=== PATIENT | female | born 1950 | race Caucasian/White ===

== ENCOUNTER 2019-01-28 13:00 | Outpatient (RCR) | payer OTHER, SELFPAY ==
[2019-01-28 12:58] VITALS: BMI 29.9
[2019-01-28 13:05] VITALS: BMI 29.9
== END 2019-04-22 23:59 | disposition home or self-care (01) ==
LOC: ANHDMC 13:00
PROVIDERS: PCP Internal Medicine; Visit Provider Internal Medicine
DX: E11.9 Type 2 diabetes mellitus without complications (principal); Z71.3 Dietary counseling and surveillance; Z71.89 Other specified counseling
CPT/HCPCS: 97803; G0108; G0109

== ENCOUNTER 2019-04-17 16:09 | Outpatient (CLI) | payer OTHER, SELFPAY ==
[2019-04-17 16:51] LABS: Hemoglobin A1C 6.5 % (<5.7)
== END 2019-04-17 16:10 | disposition home or self-care (01) ==
LOC: ANHLAB 16:11
PROVIDERS: PCP Internal Medicine; Visit Provider Internal Medicine
DX: E11.9 Type 2 diabetes mellitus without complications (principal)
CPT/HCPCS: 36415; 83036

== ENCOUNTER 2019-04-24 09:18 | Outpatient (RCR) | payer OTHER, SELFPAY | END 2019-07-23 23:59 | disposition home or self-care (01) | LOC: ANHDMC 09:18 | PROVIDERS: PCP Internal Medicine; Visit Provider Internal Medicine | DX: E11.9 Type 2 diabetes mellitus without complications (principal); Z71.89 Other specified counseling | CPT/HCPCS: G0108 ==

== ENCOUNTER 2019-05-14 07:56 | Outpatient (CLI) | payer OTHER, SELFPAY ==
--- NOTE | 2019-05-14 | EST_ITS ---
Patient Info Name: Gregoria Ortiz Age: 68 years : 1950 Gender: Female Ht: 61 in Wt: 150 lbs BSA: 1.73 m2 Exam Date: 05/14/2019 9:53 AM Exam Location: [facility] Stress Patient Status: Outpatient Admit Date: 05/14/2019 Staff Ordering Physician: Golden Ly MD Attending Provider: Golden Ly MD Exercise Technologist: Kwame Arora, RDCS, RT Nurse: Kary Bruno, ANP, ACNP-BC Exam Type: CA stress franklyn w NM Study Info A nuclear stress test was performed. Summary 1. Please correlate with nuclear medicine images, reported separately. 2. Exercise-induced chest pain. 3. Nondiagnostic upsloping ST segment depressions seen inferolateral leads which do not meet strict criteria for ischemia at peak exercise. Protocol: Manolo Stress ECG Details Stage: REST Duration (min): 1 min : 28 sec Speed (mph): 0.0 Grade (%): 0 HR (bpm): 76 SBP (mmHg): 154 DBP (mmHg): 87 METS: --- Stage: REST Duration (min): 47 min : 22 sec Speed (mph): 0.0 Grade (%): 0 HR (bpm): 87 SBP (mmHg): 154 DBP (mmHg): 87 METS: --- Stage: STAGE 1 Duration (min): 1 min : 0 sec Speed (mph): 1.7 Grade (%): 10 HR (bpm): 105 SBP (mmHg): 154 DBP (mmHg): 87 METS: --- Stage: STAGE 1 Duration (min): 2 min : 0 sec Speed (mph): 1.7 Grade (%): 10 HR (bpm): 123 SBP (mmHg): 154 DBP (mmHg): 87 METS: --- Stage: STAGE 1 Duration (min): 3 min : 0 sec Speed (mph): 1.7 Grade (%): 10 HR (bpm): 131 SBP (mmHg): 187 DBP (mmHg): 99 METS: --- Stage: STAGE 2 Duration (min): 1 min : 0 sec Speed (mph): 2.5 Grade (%): 12 HR (bpm): 146 SBP (mmHg): 187 DBP (mmHg): 99 METS: --- Stage: STAGE 2 Duration (min): 1 min : 41 sec Speed (mph): 2.5 Grade (%): 12 HR (bpm): 156 SBP (mmHg): 187 DBP (mmHg): 99 METS: --- Stage: RECOVERY Duration (min): 0 min : 18 sec Speed (mph): 1.5 Grade (%): 0 HR (bpm): 156 SBP (mmHg): 205 DBP (mmHg): 96 METS: --- Stage: RECOVERY Duration (min): 1 min : 18 sec Speed (mph): 0.0 Grade (%): 0 HR (bpm): 125 SBP (mmHg): 205 DBP (mmHg): 96 METS: --- Stage: RECOVERY Duration (min): 2 min : 18 sec Speed (mph): 0.0 Grade (%): 0 HR (bpm): 112 SBP (mmHg): 205 DBP (mmHg): 96 METS: --- Stage: RECOVERY Duration (min): 3 min : 18 sec Speed (mph): 0.0 Grade (%): 0 HR (bpm): 101 SBP (mmHg): 199 DBP (mmHg): 92 METS: --- Stage: RECOVERY Duration (min): 4 min : 18 sec Speed (mph): 0.0 Grade (%): 0 HR (bpm): 98 SBP (mmHg): 199 DBP (mmHg): 92 METS: --- Stage: RECOVERY Duration (min): 5 min : 18 sec Speed (mph): 0.0 Grade (%): 0 HR (bpm): 97 SBP (mmHg): 174 DBP (mmHg): 91 METS: --- Stage:
--- NOTE | ~2019-05-14 | NM_ITS ---
EXAMINATION: NM stress w perf spect multi DATE: 05/14/2019 12:36 INDICATION: Coronary atherosclerosis. TECHNIQUE: Rest images were obtained following intravenous administration of 9.7 mCi Tc99m tetrofosmi n ([employer]). The patient performed an exercise activity. At peak exercise, 25.7 mCi Tc99m tetrofosmin ([facility]) was administered intravenously, and stress images were obtained. Data was reconstructed in to short axis and horizontal and vertical long axis SPECT images. Gated SPECT images were also obtain ed. COMPARISON: None. FINDINGS: There is no definite reversible or fixed perfusion abnormality to suggest ischemia or infar ction. There is no segmental wall motion abnormality. Left ventricular ejection fraction measures > 70%. IMPRESSION: 1. No definite ischemia or infarct. 2. Normal left ventricular ejection fraction measuring >70%. Reviewed, dictated and finalized at location A. [employer] CONSOLE OPERATOR
== END 2019-05-14 07:57 | disposition home or self-care (01) ==
PROVIDERS: PCP Internal Medicine; Visit Provider Internal Medicine Cardiovascular Disease
DX: I25.118 Atherosclerotic heart disease of native coronary artery with other forms of angina pectoris (principal); R07.9 Chest pain, unspecified
CPT/HCPCS: 78452; 93017; A9502

== ENCOUNTER 2019-07-26 00:35 | Outpatient (CLI) | payer OTHER, SELFPAY ==
[2019-07-26 16:18] LABS: SARS-CoV-2 RNA PCR Negative
== END 2019-07-26 00:36 | disposition home or self-care (01) ==
PROVIDERS: PCP Internal Medicine; Visit Provider Internal Medicine Cardiovascular Disease
DX: Z01.818 Encounter for other preprocedural examination (principal); Z11.59 Encounter for screening for other viral diseases; R07.9 Chest pain, unspecified
CPT/HCPCS: 87635; C9803; U0003

== ENCOUNTER 2019-07-29 00:22 | Day surgery (SDC) | payer OTHER, SELFPAY ==
[2019-07-28 11:50] VITALS: BMI 29.5
[2019-07-29] VITALS (8 sets, daily range): BP systolic 126–169; BP diastolic 65–97; PULSE 70–84; RESP 14–25; TEMP 36.6–36.7; O2SAT 91–97
[2019-07-29 09:19] LABS: Basophils Percent Auto 0.4 % (0.2-1.2); Eosinophils Absolute Auto 0.2 K/mm3 (0-0.3); Eosinophils Percent Auto 2.8 % (0-4.4); Hematocrit 44.3 % (37.0-47.0); Hemoglobin 14.2 g/dL (12.0-15.0); Immature Granulocyte Absolute 0.02 K/mm3 (0.00-0.031); Immature Granulocyte Percent A 0.3 % (0-0.5); Lymphocytes Absolute Auto 2.16 K/mm3 (0.9-3.2); Lymphocytes Percent Auto 28.5 % (18.3-44.2); Mean Corpuscular HGB Conc 32.1 g/dl (32-36); Mean Corpuscular Hemoglobin 27.2 pg (26-34); Mean Corpuscular Volume 84.7 fl (80-100); Mean Platelet Volume 9.5 fl (7.4-10.4); Monocytes Absolute Auto 0.5 K/mm3 (0.1-0.6); Monocytes Percent Auto 6.2 % (2.6-8.5); Neutrophils Absolute Auto 4.7 K/mm3 (1.3-6.7); Neutrophils Percent Auto 61.8 % (45.5-73.1); Platelet Count Result 231 k/mm3 (150-375); Red Blood Count 5.23 M/mm3 (4.2-5.4); Red Cell Distribution Width 14.2 % (11.5-14.5); White Blood Count 7.6 K/mm3 (4.5-10.0)
[2019-07-29 09:29] LABS: INR 0.9; Prothrombin Time 12.1 Seconds (11.1-14.7)
[2019-07-29 09:33] LABS: Blood Urea Nitrogen 16 mg/dL (7-17); Calcium 9.1 mg/dL (8.4-10.2); Carbon Dioxide 26 mmol/L (22-30); Estimated CRCL calculation 61 ml/min; Estimated Glomerular Filt Rate > 60; Glucose 128 mg/dL (65-105); Potassium 3.8 mmol/L (3.4-5.0); Sodium 141 mmol/L (137-145)
[2019-07-29 09:35] LABS: Chloride 107 mmol/L (98-107)
--- NOTE | 2019-07-29 10:52 | PM.IMHP ---
H&P: HPI History of Present Illness Chief complaint: Hx CAD/ Exercise Induced Chest Pain Narrative: Gregoria Ortiz is a 69 year old female with known CAD, history of non ST elevation [place], status post PCI/ 2.75 x 15 mm everolimus eluting stent placement in the proximal LAD on 06/30/[address] Lindquist; ischemic cardiomyopathy, dyslipidemia. Patient has been referred by Dr. Ly for coronary angiogram in the setting of episodes of chest discomfort. Patient had exercise MPI on 05/14/2019 at which time she had exercise induced chest discomfort which according to patient was not exercise limiting; MPI was negative for ischemia or infarct with EF more than 70%. Review of Systems Constitutional: Constitutional: Denies chills, Denies fatigue, Denies fever(s) and Denies headache(s) Eyes: Eyes: Reports as per HPI, Denies change in vision, Denies loss of vision and Denies eye pain ENT: Reports as per HPI, Reports Normal hearing present, Denies headache(s), Denies lip swelling, Denies epistaxis and Denies sore throat Cardiovascular: Cardiovascular: Reports as per HPI, Reports chest pain, Denies syncope, Denies irregular heart rhythm, Denies lightheadedness and Denies dyspnea Comments: Episodes of chest pain Respiratory: Respiratory: Reports as per HPI, Denies cough, Denies dyspnea and Denies wheezing Gastrointestinal: Gastrointestinal: Reports as per HPI, Denies abdominal pain and Denies melena Comments: occasion GERD like symptoms Genitourinary: Genitourinary: Reports as per HPI Musculoskeletal: Musculoskeletal: Reports as per HPI, Denies myalgias, Denies muscle cramps and Denies muscle weakness Integumentary/Breasts: Skin/Breast: Reports as per HPI, Denies pruritus and Denies rash Neurologic: Reports as per HPI, Reports Normal hearing present, Denies behavioral changes, Denies syncope, Denies headache(s) and Denies loss of vision Psychiatric: Psychiatric: Reports as per HPI, Denies anxiety, Denies behavioral changes and Denies depression Endocrine: Endocrine: Reports as per HPI, Denies fatigue, Denies polydipsia and Denies polyuria Hematologic/Lymphatic: Hematologic/Lymphatic: Reports as per HPI, Denies easy bleeding and Denies easy bruising Allergic/Immunologic: Allergic/Immunologic: Reports as per HPI, Denies lip swelling and Denies wheezing PMF Family History Family History Mother Hypertension, Onset Age: 79 Family history of elevated blood lipids, Onset Age: 79 Patient's mother is Father Family history of coronary artery disease, Onset Age: 85 Patient's father is Social History Social History Smoking status: Never smoker Second hand tobacco smoke exposure: No Alcohol intake: current Gender identity (if verbalized by the patient): Female Spiritual care concerns: Yes Meds Home Medications and Allergies Home Medications Medication Instructions Recorded Confirmed Type pioglitazone 15 mg tablet 15 mg PO DAILY #90 tablet 02/24/19 07/28/19 Rx aspirin 81 mg PO DAILY 07/28/19 07/28/19 History atorvastatin 40 mg PO HS 07/28/19 07/28/19 History carvedilol 6.25 mg PO BID 07/28/19 07/28/19 History cetirizine [Allergy Relief 10 mg PO DAILY 07/28/19 07/28/19 History (cetirizine)] fluticasone propionate [Allergy 2 spray INTRANASAL DAILY 07/28/19 07/28/19 History Relief (fluticasone)] icosapent ethyl [Vascepa] 2 g PO BID 07/28/19 07/28/19 History lisinopril 5 mg PO DAILY 07/28/19 07/28/19 History nitroglycerin 0.4 mg SUBLINGUAL PRN PRN 07/28/19 07/28/19 History omeprazole 20 mg PO DAILY 07/28/19 07/28/19 History Allergies Allergy/AdvReac Type Severity Reaction Status Date / Time hydrochlorothiazide Allergy Mild Rash Verified 07/28/19 18:48 sesame oil Allergy Unknown Unknown Verified 07/28/19 18:48 Dairy Allergy Unknown Unknown Uncoded 07/28/19 18:48 Sesame See
--- NOTE | 2019-07-29 10:59 | WPDMODSED ---
Moderate Sedation Note-Pt Data Patient Data Allergies Allergy/AdvReac Type Severity Reaction Status Date / Time hydrochlorothiazide Allergy Mild Rash Verified 07/28/19 18:48 sesame oil Allergy Unknown Unknown Verified 07/28/19 18:48 Dairy Allergy Unknown Unknown Uncoded 07/28/19 18:48 Sesame Seed Allergy Unknown Unknown Uncoded 07/28/19 18:48 Home Medications Medication Instructions Recorded Confirmed Type pioglitazone 15 mg tablet 15 mg PO DAILY #90 tablet 02/24/19 07/28/19 Rx aspirin 81 mg PO DAILY 07/28/19 07/28/19 History atorvastatin 40 mg PO HS 07/28/19 07/28/19 History carvedilol 6.25 mg PO BID 07/28/19 07/28/19 History cetirizine [Allergy Relief 10 mg PO DAILY 07/28/19 07/28/19 History (cetirizine)] fluticasone propionate [Allergy 2 spray INTRANASAL DAILY 07/28/19 07/28/19 History Relief (fluticasone)] icosapent ethyl [Vascepa] 2 g PO BID 07/28/19 07/28/19 History lisinopril 5 mg PO DAILY 07/28/19 07/28/19 History nitroglycerin 0.4 mg SUBLINGUAL PRN PRN 07/28/19 07/28/19 History omeprazole 20 mg PO DAILY 07/28/19 07/28/19 History Current Medications: Active Medications Sodium Chloride (Normal Saline Iv) 500 mls @ 100 mls/hr IV CONT .Q5H KRISTA Sedation/Anesthesia: No previous sedation/anesthesia problems (including family history). PMFSH Family History Family History Mother Hypertension, Onset Age: 79 Family history of elevated blood lipids, Onset Age: 79 Patient's mother is Father Family history of coronary artery disease, Onset Age: 85 Patient's father is Social History Social History Smoking status: Never smoker Second hand tobacco smoke exposure: No Alcohol intake: current Gender identity (if verbalized by the patient): Female Spiritual care concerns: Yes Mod Sed Physical Exam Physical Exam Pre Procedural Exam: Normal: Airway Hours since solid foods: 11 Hours since liquid intake: 11 Internal Medicine - PN: Obj Da Vital Signs Vital Signs: Vital Signs - 24 hr 07/29/19 09:22 Temperature 36.7 C Pulse Rate 84 Respiratory Rate 14 Blood Pressure 169/97 H Pulse Oximetry 97 Meds/Results Medications: Active Medications Generic Name Dose Route Start Last Admin Trade Name Nicolas PRN Reason Stop Dose Admin Sodium Chloride 500 mls @ 100 mls/hr 07/29/19 06:05 Normal Saline Iv IV CONT .Q5H KRISTA Labs CBC & Chem 7: 07/29/19 09:14 07/29/19 09:14 Labs: Laboratory Results - last 24 hr 07/29/19 07/29/19 07/29/19 09:14 09:14 09:14 WBC 7.6 RBC 5.23 Hgb 14.2 Hct 44.3 MCV 84.7 MCH 27.2 MCHC 32.1 RDW 14.2 Plt Count 231 MPV 9.5 Immature Gran % (Auto) 0.3 Neut % (Auto) 61.8 Lymph % (Auto) 28.5 [place] % (Auto) 6.2 Eos % (Auto) 2.8 Baso % (Auto) 0.4 Lymph # (Auto) 2.16 [place] # (Auto) 0.5 Eos # (Auto) 0.2 Baso # (Auto) 0.0 Abs Immat Gran (auto) 0.02 Absolute Neuts (auto) 4.7 Absolute Nucleated RBC 0.0 Nucleated RBC % 0.0 PT 12.1 INR 0.9 Sodium 141 Potassium 3.8 Chloride 107 Carbon Dioxide 26 BUN 16 Creatinine 0.70 Estim Creat Clear Calc 61 Estimated GFR > 60 Glucose 128 H Calcium 9.1 ASA Classification/Sedation ASA Classification/Sedation Risks: Risks, benefits and alternatives explained and patient/family accepted plan for sedation. Patient re-evaluated immediately prior to sedation.
--- NOTE | 2019-07-29 11:32 | WPDCARDPROC ---
Cardiac Cath Procedure Note Date of procedure:: 07/29/19 Performing physician:: Ricky Ureña MD Procedure Procedure note:: LEFT HEART CATHETERIZATION AND CORONARY ANGIOGRAM REPORT DATE OF PROCEDURE: 07/29/2019 INDICATION FOR PROCEDURE: occasional episodes of chest pain; CAD, history of PCI / stenting of proximal LAD BRIEF CLINICAL HISTORY: 69 year old female with known CAD, history of non ST elevation [place], status post PCI/ 2.75 x 15 mm everolimus eluting stent placement in the proximal LAD on 06/30/[address] Lindquist; ischemic cardiomyopathy, dyslipidemia. Patient was referred by Dr. Ly for coronary angiogram in the setting of episodic chest discomfort. Patient had exercise MPI on 05/14/2019 at which time she had exercise induced chest discomfort which according to patient was non exercise limiting; MPI was negative for ischemia or infarct with EF more than 70%. Benefits and risks of the procedure were discussed with patient and informed consent was taken prior to the procedure. PROCEDURES PERFORMED: 1. Left heart catheterization- Selective left and right coronary angiogram; left ventriculogram and hemodynamic assessment 2. Selective right common femoral angiogram and deployment of Angio-Seal hemostatic device 3. Moderate sedation-CPT code 88543 MODERATE SEDATION: Midazolam 2 mg; fentanyl 50 mcg; Start time 1057 , Stop time 1121 ; Total [id number] time 24 minutes; Isai Machuca RN was trained observer for moderate sedation. ACCESS SITE: Right common femoral artery PROCEDURE NOTE: After obtaining informed consent, patient was brought to catheterization lab and prepped and draped in a usual sterile manner. After local anesthesia with lidocaine, right common femoral artery access was taken with micropuncture needle followed by insertion of a 5 [place] sheath. Selective left coronary angiogram was performed using 5 [place] JL4 catheter. RCA selective angiogram was initially performed using 5 [place] JR4 catheter. Next, angiogram was performed using JL 3.5 catheter for better engagement.Orthogonal views were taken. Next, a 5 [place] pigtail catheter was advanced in the LV cavity and was flushed with normal saline. LV pressure measurement was performed. After this, left ventriculogram was performed. The catheter was flushed again, and gradient across the aortic valve was measured on the pullback of the catheter. Finally, selective right common femoral angiogram was performed followed by successful deployment of Angio-Seal vascular closure device. Patient tolerated procedure well without any immediate procedure related complications. FINDINGS: LEFT MAIN CORONARY: The left main coronary artery is a medium caliber vessel, no angiographically significant focal stenosis seen. The vessel bifurcates into the LAD and left circumflex branches. LEFT ANTERIOR DESCENDING ARTERY: The LAD is a medium caliber vessel with mild about 30% narrowing at the ostium, best seen in the [place] caudal view. The previously placed stent in the proximal segment is patent without any significant normal loss. The vessel gradually tapers distally and wraps LV apex. Small to medium-sized diagonal branch which arises at the distal edge of the previously placed proximal LAD stent as somewhat poorly defined, 60-70% stenosis at the ostium. The vessel does not subtend a significant myocardium. These angiographic findings are unchanged from previous catheterization performed on 07/22/2014. LEFT CIRCUMFLEX ARTERY: The left circumflex artery is a medium caliber vessel, gives rise to high OM branch which bifurcates into 2 branches. The main LCX is tortuous, continues in the AV groove. No significant focal stenosis seen. RIGHT CORONARY ARTERY: The right coronary artery is a medium caliber, tortuous vessel with minor irregularities in the mid segment. The vessel gives rise to medium-sized PDA and PLV branches, PLV branch is very tortuous. LEFT VENTRICULOGRAM: Preserved LV
== END 2019-07-29 14:45 | disposition home or self-care (01) ==
PROVIDERS: PCP Internal Medicine; Visit Provider Internal Medicine Cardiovascular Disease
PROC: 4A023N7 Measurement of Cardiac Sampling and Pressure, Left Heart, Percutaneous Approach (ICD-10-PCS; CPT 93452; principal; 2019-07-29 10:00)
DX: I25.10 Atherosclerotic heart disease of native coronary artery without angina pectoris (principal); R07.9 Chest pain, unspecified; Z95.5 Presence of coronary angioplasty implant and graft; I25.2 Old myocardial infarction; I25.5 Ischemic cardiomyopathy; E78.5 Hyperlipidemia, unspecified; Z79.82 Long term (current) use of aspirin
CPT/HCPCS: 36415; 80048; 85025; 85610; 93458; C1760; C1887; C1894; G0269; J1644; J2250; J3010; J7040

== ENCOUNTER 2019-10-17 14:38 | Outpatient (CLI) | payer OTHER, SELFPAY ==
[2019-10-17 15:20] LABS: Hemoglobin A1C 6.7 % (<5.7)
== END 2019-10-17 14:39 | disposition home or self-care (01) ==
PROVIDERS: PCP Internal Medicine; Visit Provider Internal Medicine
DX: E11.9 Type 2 diabetes mellitus without complications (principal)
CPT/HCPCS: 36415; 83036

== ENCOUNTER 2019-11-18 08:12 | Outpatient (CLI) | payer OTHER, SELFPAY ==
[2019-11-18 08:43] LABS: Alanine Aminotransferase 16 U/L (4-35); Albumin Level 4.1 g/dL (3.5-5.1); Alkaline Phosphatase 101 U/L (38-126); Anion Gap 7 mmol/L (8-16); Aspartate Amino Transferase 23 U/L (14-36); Bilirubin,Total 0.5 mg/dL (0.2-1.3); Blood Urea Nitrogen 17 mg/dL (7-17); Carbon Dioxide 28 mmol/L (22-30); Chloride 106 mmol/L (98-107); Cholesterol 135 mg/dL (0-200); Estimated Glomerular Filt Rate > 60; Glucose 150 mg/dL (65-105); HDL Direct 43 mg/dL; Potassium 4.2 mmol/L (3.4-5.0); Sodium 141 mmol/L (137-145); Triglycerides 114 mg/dL (<150)
[2019-11-18 08:54] LABS: LDL Cholesterol Direct 60 mg/dL
== END 2019-11-18 08:13 | disposition home or self-care (01) ==
LOC: ANHLAB 08:16
PROVIDERS: PCP Internal Medicine; Visit Provider Internal Medicine
DX: E78.5 Hyperlipidemia, unspecified (principal); I10 Essential (primary) hypertension
CPT/HCPCS: 36415; 80053; 80061

== ENCOUNTER 2020-05-22 07:21 | Outpatient (CLI) | payer OTHER, SELFPAY ==
[2020-05-22 08:58] LABS: Alanine Aminotransferase 18 U/L (4-35); Alkaline Phosphatase 98 U/L (38-126); Anion Gap 7 mmol/L (8-16); Aspartate Amino Transferase 25 U/L (14-36); Bilirubin,Total 0.5 mg/dL (0.2-1.3); Blood Urea Nitrogen 15 mg/dL (7-17); Calcium 9.1 mg/dL (8.4-10.2); Carbon Dioxide 27 mmol/L (22-30); Chloride 110 mmol/L (98-107); Cholesterol 140 mg/dL (0-200); Estimated Glomerular Filt Rate > 60; Glucose 136 mg/dL (65-105); HDL Direct 48 mg/dL; Sodium 144 mmol/L (137-145); Triglycerides 181 mg/dL (<150)
[2020-05-22 09:04] LABS: Hemoglobin A1C 6.5 % (<5.7)
[2020-05-22 09:09] LABS: LDL Cholesterol Direct 61 mg/dL
[2020-05-22 11:13] LABS: Creatinine Urine 144.8 mg/dL
[2020-05-22 11:17] LABS: Microalbumin Urine Random 15.9 mg/L (0-16.7)
== END 2020-05-22 07:22 | disposition home or self-care (01) ==
PROVIDERS: PCP Internal Medicine; Visit Provider Internal Medicine
DX: E11.9 Type 2 diabetes mellitus without complications (principal); I10 Essential (primary) hypertension; E78.5 Hyperlipidemia, unspecified
CPT/HCPCS: 36415; 80053; 80061; 82043; 83036

== ENCOUNTER → 2021-05-02 10:17 | Outpatient (CLI) | payer OTHER, SELFPAY ==
[2021-05-02 17:26] LABS: SARS-CoV-2 RNA PCR Negative
== END ==
PROVIDERS: PCP Internal Medicine; Visit Provider Internal Medicine
DX: R68.89 Other general symptoms and signs (principal); Z20.822 Contact with and (suspected) exposure to COVID-19
CPT/HCPCS: C9803; U0003; U0005

== ENCOUNTER 2021-05-16 06:58 | Outpatient (CLI) | payer OTHER, SELFPAY ==
[2021-05-16 07:42] LABS: Basophils Percent Auto 0.6 % (0.2-1.2); Eosinophils Absolute Auto 0.2 K/mm3 (0-0.3); Eosinophils Percent Auto 2.6 % (0-4.4); Hematocrit 44.8 % (37.0-47.0); Hemoglobin 14.1 g/dL (12.0-15.0); Immature Granulocyte Absolute 0.02 K/mm3 (0.00-0.031); Immature Granulocyte Percent A 0.3 % (0-0.5); Lymphocytes Absolute Auto 1.95 K/mm3 (0.9-3.2); Lymphocytes Percent Auto 27.8 % (18.3-44.2); Mean Corpuscular HGB Conc 31.5 g/dl (32-36); Mean Corpuscular Hemoglobin 27.4 pg (26-34); Mean Corpuscular Volume 87.2 fl (80-100); Mean Platelet Volume 9.7 fl (7.4-10.4); Monocytes Absolute Auto 0.6 K/mm3 (0.1-0.6); Neutrophils Absolute Auto 4.3 K/mm3 (1.3-6.7); Neutrophils Percent Auto 60.7 % (45.5-73.1); Platelet Count Result 235 k/mm3 (150-375); Red Blood Count 5.14 M/mm3 (4.2-5.4); Red Cell Distribution Width 14.5 % (11.5-14.5)
[2021-05-16 07:53] LABS: Alanine Aminotransferase 19 U/L (4-35); Albumin Level 4.2 g/dL (3.5-5.1); Alkaline Phosphatase 116 U/L (38-126); Anion Gap 8 mmol/L (8-16); Aspartate Amino Transferase 26 U/L (14-36); Bilirubin,Total 0.6 mg/dL (0.2-1.3); Blood Urea Nitrogen 16 mg/dL (7-17); Calcium 9.2 mg/dL (8.4-10.2); Carbon Dioxide 26 mmol/L (22-30); Chloride 107 mmol/L (98-107); Cholesterol 142 mg/dL (0-200); Estimated Glomerular Filt Rate > 60; Glucose 151 mg/dL (65-110); HDL Direct 51 mg/dL; Magnesium 1.6 mg/dL (1.6-2.3); Potassium 4.2 mmol/L (3.4-5.0); Sodium 141 mmol/L (137-145); Triglycerides 138 mg/dL (<150)
[2021-05-16 07:59] LABS: Hemoglobin A1C 6.7 % (<5.7)
[2021-05-16 08:04] LABS: LDL Cholesterol Direct 62 mg/dL
[2021-05-16 08:17] LABS: Creatinine Urine 179.8 mg/dL
[2021-05-16 08:21] LABS: MALB Creatinine Ratio 22.3 mg/g (0-30); Microalbumin Urine Random 40.1 mg/L (0-16.7)
== END 2021-05-16 06:59 | disposition home or self-care (01) ==
LOC: ANHLAB 07:02
PROVIDERS: PCP Internal Medicine; Visit Provider Internal Medicine
DX: E78.5 Hyperlipidemia, unspecified (principal); K21.9 Gastro-esophageal reflux disease without esophagitis; I10 Essential (primary) hypertension; E11.9 Type 2 diabetes mellitus without complications
CPT/HCPCS: 36415; 80053; 80061; 82043; 82607; 83036; 83735; 85025

== ENCOUNTER → 2021-07-25 13:07 | Outpatient (CLI) | payer OTHER, SELFPAY ==
--- NOTE | ~2021-07-25 | MM_ITS ---
EXAMINATION: MM screening [facility] BI w ratna HISTORY: Screening TECHNIQUE: Craniocaudal and mediolateral oblique 3-D tomosynthesis images were obtained and synthetic 2-D images were generated. CAD analysis was submitted and interpreted. COMPARISON: Comparison to multiple prior studies sequentially, with oldest reviewed study dated 02/17. BREAST PARENCHYMAL COMPOSITION: There are scattered areas of fibroglandular density. FINDINGS: There is no evidence of suspicious mass, calcification, or architectural distortion to sugg est malignancy in either breast. There has been no suspicious interval change. IMPRESSION: 1. No mammographic evidence of malignancy. 2. Recommend routine screening mammography in one year. BI-RADS Category 1: Negative Reviewed, dictated and finalized at location A.
--- NOTE | ~2021-07-25 | DEXA_ITS ---
Bone Density Report Name: JHOANA JIMENEZ Age: 71 Sex: Female Ethnicity: White Date of : 1950 Indication: postmenopausal; screening for osteoporosis; Referring Provider: JUAN BOSE Study: Bone densitometry was performed. Exam Date: July 25, 2021 Accession number: [id number] Bone Density: Region BMD T-score Z-score Classification AP Spine (L1-L4) 1.230 1.7 3.7 Normal Femoral Neck (Left) 0.753 -0.9 0.9 Normal Total Hip (Left) 0.928 -0.1 1.3 Normal Femoral Neck (Right) 0.825 -0.2 1.5 Normal Total Hip (Right) 0.873 -0.6 0.9 Normal Total Hip Mean 0.901 -0.4 1.1 Normal World Health Organization criteria for BMD impression classify patients as: Normal (T-score at or above -1.0), Osteopenia (T-score between -1.0 and -2.5), or Osteoporosis (T-score at or below -2.5). 10-year Fracture Risk: FRAX not reported because: All T-scores for Spine Total, Hip Total, Femoral Neck at or above -1.0 Previous Exams: Region Exam Age BMD T-score BMD Change BMD Change Date g/cm2 vs Baseline vs Previous AP Spine(L1-L4) 07/25/2021 71 1.230 1.7 0.072* 0.026* 04/26/2016 65 1.204 1.4 0.046* 0.046* 01/19/2010 59 1.158 1.0 Total Hip(Left) 07/25/2021 71 0.928 -0.1 -0.050* -0.031* 04/26/2016 65 0.959 0.1 -0.019 -0.019 01/19/2010 59 0.978 0.3 Total Hip(Right) 07/25/2021 71 0.873 -0.6 -0.051* -0.050* 04/26/2016 65 0.924 -0.2 0.000 0.000 01/19/2010 59 0.924 -0.1 *Denotes significance at 95% confidence level, LSC for AP Spine = 0.022 g/cm2, LSC for Total Hip = 0.027 g/cm2 Clinical Information Provided by Patient: Patient maximum height was 61.2 Menopause Age: 60 Onset of menses at age 13 Number of children 2 Impression: The patient has normal bone mass. The BMD for the Total Hip(Left) decreased, changing by -0.031 since the last DXA exam. The BMD for the Total Hip(Right) decreased, changing by -0.050 since the last DXA exam. Discussion: BONE DENSITY IS ABOVE THE MINIMUM DESIRABLE LEVEL AT ALL SKELETAL SITES TESTED. This patient?s bone mineral density is above the minimum desirable level (T-score -1.0 or better) at all sites measured. The patient should follow a healthful lifestyle (good nutrition with adequate calcium and vitamin D, and appropriate weight-bearing exercise). Follow-Up: Consider repeating this study in
== END ==
PROVIDERS: PCP Internal Medicine; Visit Provider Obstetrics & Gynecology
DX: Z12.31 Encounter for screening mammogram for malignant neoplasm of breast (principal); Z78.0 Asymptomatic menopausal state
CPT/HCPCS: 77063; 77067; 77080

== ENCOUNTER 2022-05-30 17:00 | Emergency (ER) | payer MEDICARE, SELFPAY ==
--- NOTE | ~2022-05-30 | XR_ITS ---
EXAMINATION: XR chest 2V Exam Date/Time: 05/30/2022 17:20 CDT HISTORY: MIDSTERNAL CHEST PAIN X TODAY . HX CAD, HEART STENT Comparison: 06/30/2014. RESULT: Lines, tubes, and devices: None. Lungs and pleura: Clear. Cardiomediastinal silhouette: Stable. Other: No acute osseous or upper abdominal finding. IMPRESSION: No acute cardiopulmonary process. Reviewed, dictated and finalized at location K.
--- NOTE | 2022-05-30 17:06 | ECG_ITS ---
Measurements Intervals [place] Rate: 69 P: 56 [place]: 152 QRS: -14 QRSD: 88 T: 56 QT: 392 QTc: 420 Interpretive Statements SINUS RHYTHM LOW QRS VOLTAGE IN PRECORDIAL LEADS PATTERN CONSISTENT WITH PULMONARY DISEASE BASELINE ARTIFACT- I, II, AVR BORDERLINE ECG NO PREVIOUS ECG AVAILABLE FOR COMPARISON Electronically Signed On 05-30-2022 21:33:02 CDT by Sherif Elizabeth D.O.
[2022-05-30 17:19] VITALS: BP 172/89; PULSE 79; RESP 14; TEMP 36.4; O2SAT 98
[2022-05-30 18:09] LABS: Basophils Percent Auto 0.4 % (0.2-1.2); Eosinophils Absolute Auto 0.2 K/mm3 (0-0.3); Eosinophils Percent Auto 2.8 % (0-4.4); Hematocrit 45.6 % (37.0-47.0); Hemoglobin 14.7 g/dL (12.0-15.0); Immature Granulocyte Absolute 0.02 K/mm3 (0.00-0.031); Immature Granulocyte Percent A 0.3 % (0-0.5); Lymphocytes Absolute Auto 2.29 K/mm3 (0.9-3.2); Lymphocytes Percent Auto 30.6 % (18.3-44.2); Mean Corpuscular HGB Conc 32.2 g/dl (32-36); Mean Corpuscular Hemoglobin 27.6 pg (26-34); Mean Corpuscular Volume 85.6 fl (80-100); Mean Platelet Volume 9.4 fl (7.4-10.4); Monocytes Absolute Auto 0.5 K/mm3 (0.1-0.6); Monocytes Percent Auto 6.4 % (2.6-8.5); Neutrophils Absolute Auto 4.5 K/mm3 (1.3-6.7); Neutrophils Percent Auto 59.5 % (45.5-73.1); Platelet Count Result 253 k/mm3 (150-375); Red Blood Count 5.33 M/mm3 (4.2-5.4); Red Cell Distribution Width 14.1 % (11.5-14.5); White Blood Count 7.5 K/mm3 (4.5-10.0)
[2022-05-30 18:18] LABS: Alanine Aminotransferase 19 U/L (6-35); Albumin Level 4.7 g/dL (3.5-5.1); Alkaline Phosphatase 117 U/L (38-126); Anion Gap 6 mmol/L (8-16); Aspartate Amino Transferase 29 U/L (14-36); Bilirubin,Total 0.7 mg/dL (0.2-1.3); Blood Urea Nitrogen 19 mg/dL (7-17); Calcium 9.8 mg/dL (8.4-10.2); Carbon Dioxide 29 mmol/L (22-30); Chloride 104 mmol/L (98-107); Estimated CRCL calculation 66 ml/min; Estimated Glomerular Filt Rate > 60; Glucose 107 mg/dL (65-110); Lipase 303 U/L (23-300); Potassium 3.8 mmol/L (3.4-5.0); Prothrombin Time 12.7 Seconds (11.1-14.7); Sodium 139 mmol/L (137-145)
[2022-05-30 18:19] LABS: Partial Thromboplastin Time 28.8 SECONDS (22.3-36.8)
[2022-05-30 18:32] LABS: Troponin I < 0.012 ng/mL (0.000-0.034)
[2022-05-30 20:40] VITALS: BP 180/81; PULSE 73; RESP 16; O2SAT 97
[2022-05-30 21:05] LABS: Troponin I < 0.012 ng/mL (0.000-0.034)
[2022-05-30 21:15] VITALS: PULSE 73
[2022-05-30 21:56] VITALS: BP 166/70; PULSE 76; RESP 18; O2SAT 100
--- NOTE | 2022-05-30 22:46 | ED.GENADULT ---
HPI - General Adult General Chief complaint: Chest Pain Stated complaint: Chest pain Time Seen by Provider: 05/30/22 21:24 History of Present Illness HPI narrative: Patient is 71-year-old female who presents the emergency department with chief complaint of chest pain. The patient reports that she had have a fullness feeling in her mid chest patient reports that it was nonradiating reports that it feels different from whenever she had her ID several years ago. Patient reports that she has had a stress test in 2019 that was negative and a cardiac cath that was clean. Patient states the pain is doing much better at this time Related Data Home Medications Medication Instructions Recorded Confirmed aspirin 81 mg chewable tablet 81 mg PO DAILY 07/28/19 07/13/21 atorvastatin 40 mg tablet 40 mg PO HS 07/28/19 07/13/21 carvedilol 6.25 mg tablet 6.25 mg PO BID 07/28/19 07/13/21 lisinopril 5 mg tablet 5 mg PO DAILY 07/28/19 07/13/21 nitroglycerin 0.4 mg sublingual 0.4 mg sublingual PRN PRN Chest 07/28/19 07/13/21 tablet Pain Allergies Allergy/AdvReac Type Severity Reaction Status Date / Time hydrochlorothiazide Allergy Mild Rash Verified 07/07/21 13:08 sesame oil Allergy Unknown Unknown Verified 07/07/21 13:08 Sesame Seed Allergy Unknown Unknown Uncoded 07/07/21 13:08 Review of Systems Review of Systems: A 10 system review of systems was completed on the patient and is negative except for what is stated in the HPI. Nursing and ancillary documentation was reviewed. [facility] Past Medical History Medical History Acid reflux Coronary artery disease involving [place] coronary artery of [place] heart History of heart disease Hyperlipemia IBS (irritable bowel syndrome) Past heart attack Type 2 diabetes mellitus Surgical History Surgical History H/O heart artery stent History of cardiac cath Family History Family History Mother Hypertension, Onset Age: 79 Family history of elevated blood lipids, Onset Age: 79 Patient's mother is Diabetes mellitus Father Family history of coronary artery disease, Onset Age: 85 Patient's father is Grandparent Stomach cancer Social History Social History Smoking status: Never smoker Second hand tobacco smoke exposure: No Alcohol intake: current Substance use: never Living arrangements: with family Occupation/Education: retired Gender identity (if verbalized by the patient): Female Spiritual care concerns: Yes Exam Narrative: GENERAL: Well-appearing, well-nourished, and in no acute distress. HEAD: Normocephalic, atraumatic. EYES: PERRLA and EOMI. ENT: Nares clear, no rhinorrhea or epistaxis. Mucous membranes moist. NECK: Supple. CHEST: Clear to auscultation. No respiratory distress. HEART: Regular rate and rhythm. No murmur heard. Normal peripheral pulses. ABDOMEN: Soft, nontender, nondistended, normal active bowel sounds. EXTREMITIES: Normal range of motion. No edema. SKIN: Warm, dry, no rash. NEURO: No focal deficits. Alert and oriented x3. PSYCH: Normal mood and affect. Course Vital Signs Vital signs: Vital Signs Temperature 36.4 C L 05/30/22 17:19 Pulse Rate 79 05/30/22 17:19 Respiratory Rate 14 05/30/22 17:19 Blood Pressure 172/89 H 05/30/22 17:19 Pulse Oximetry 98 05/30/22 17:19 Oxygen Delivery Room Air 05/30/22 17:19 Temperature 36.4 C L 05/30/22 17:19 Pulse Rate 76 05/30/22 21:56 Respiratory Rate 18 05/30/22 21:56 Blood Pressure 166/70 H 05/30/22 21:56 Pulse Oximetry 100 05/30/22 21:56 Oxygen Delivery Room Air 05/30/22 17:19 Medical Decision Making MDM Narrative Medical decision making narrative: Differential
[2022-05-30 22:55] VITALS: BP 150/74; PULSE 60; RESP 19; O2SAT 97
== END 2022-05-30 22:55 | disposition home or self-care (01) ==
PROVIDERS: Emergency Medicine; Emergency Provider Emergency Medicine; PCP Internal Medicine
DX: R07.89 Other chest pain (principal); I25.10 Atherosclerotic heart disease of native coronary artery without angina pectoris; I25.2 Old myocardial infarction; E78.5 Hyperlipidemia, unspecified; E11.9 Type 2 diabetes mellitus without complications; K58.9 Irritable bowel syndrome, unspecified; K21.9 Gastro-esophageal reflux disease without esophagitis; Z79.82 Long term (current) use of aspirin; R94.31 Abnormal electrocardiogram [ECG] [EKG]
CPT/HCPCS: 36415; 71046; 80053; 83690; 84484; 85025; 85610; 85730; 93005; 99284

== ENCOUNTER → 2022-12-27 14:55 | Outpatient (CLI) | payer MEDICARE, SELFPAY ==
--- NOTE | ~2022-12-27 | XR_ITS ---
XR hip RT min 2V 12/27/2022 15:09 Indication: Right hip pain Procedure: 2 views right hip Comparison: No prior studies for comparison. Findings: Mild osteoarthritis of the right hip. No fracture, subluxation or dislocation. No soft tiss ue abnormality. No foreign bodies. Impression: 1: Mild osteoarthritis of the right hip. Reviewed, dictated and finalized at location B. Impression: 1: Mild osteoarthritis of the right hip.
== END ==
PROVIDERS: PCP Internal Medicine; Visit Provider Internal Medicine
DX: M16.11 Unilateral primary osteoarthritis, right hip (principal)
CPT/HCPCS: 73502

== ENCOUNTER 2023-11-21 14:14 | Outpatient (CLI) | payer MEDICARE, SELFPAY ==
--- NOTE | ~2023-11-21 | MM_ITS ---
EXAMINATION: MM screening [facility] BI w ratna HISTORY: Screening TECHNIQUE: Craniocaudal and mediolateral oblique 3-D tomosynthesis images were obtained and synthetic 2-D images were generated. CAD analysis was submitted and interpreted. COMPARISON: Comparison to multiple prior studies sequentially, with oldest reviewed study dated 01/17. BREAST PARENCHYMAL COMPOSITION: Not dense: There are scattered areas of fibroglandular density. FINDINGS: There is no evidence of suspicious mass, calcification, or architectural distortion to sugg est malignancy in either breast. There has been no suspicious interval change. IMPRESSION: 1. No mammographic evidence of malignancy. 2. Recommend routine screening mammography in one year. BI-RADS Category 1: Negative Reviewed, dictated and finalized at location B.
== END 2023-11-21 14:15 | disposition home or self-care (01) ==
PROVIDERS: PCP Internal Medicine; Visit Provider Obstetrics & Gynecology
DX: Z12.31 Encounter for screening mammogram for malignant neoplasm of breast (principal)
CPT/HCPCS: 77063; 77067

== ENCOUNTER 2024-02-01 13:27 | Outpatient (CLI) | payer MEDICARE, SELFPAY ==
--- NOTE | ~2024-02-01 | XR_ITS ---
EXAMINATION: XR lg joint inject/asp w image DATE: 02/01/2024 14:20 INDICATION: Right hip arthritis. TECHNIQUE: A time-out was performed to verify the patient's name, date of , and procedure to b e performed. The procedure including the risks, benefits, and alternatives was discussed with the pat ient. Risks discussed included bleeding and infection. The patient understood the risks and agreed to proceed. The skin overlying the right hip joint was prepped and draped in usual sterile fashion. A nesthetic was administered with 1% lidocaine subcutaneously. A 22 G needle was advanced under fluoro scopic guidance into the joint. Subsequently, injectate consisting of 2 mL 0.5% bupivacaine and 1 mL 80 mg/mL Depo-Medrol was instilled. The needle was removed and the entry site was cleaned and dress ed. There were no immediate complications. Fluoroscopy exposure time was 0.0 minutes. The total numb er of images was 1. FINDINGS: Real-time fluoroscopy demonstrates the needle in the right hip joint. Patient's pain prior to procedure:06/26. Patient's pain following the procedure: 03/28. IMPRESSION: 1. Fluoroscopy guided right hip joint injection of local anesthetic and steroid with decrease in the patient's presenting pain. Reviewed, dictated and finalized at location A. NCIAL WRITER
== END 2024-02-01 13:28 | disposition home or self-care (01) ==
LOC: ANHIMG 13:28
PROVIDERS: PCP Internal Medicine; Visit Provider Nurse Practitioner Family
DX: M16.11 Unilateral primary osteoarthritis, right hip (principal)
CPT/HCPCS: 20610; 77002

== ENCOUNTER 2024-05-07 09:15 | Outpatient (CLI) | payer MEDICARE, SELFPAY ==
--- NOTE | ~2024-05-07 | DEXA_ITS ---
Bone Density Report Name: JHOANA JIMENEZ Age: 73 Sex: Female Ethnicity: White Date of : 1950 Indication: postmenopausal; screening for osteoporosis; Referring Provider: JUAN BOSE Study: Bone densitometry was performed. Exam Date: May 07, 2024 Accession number: [id number] Bone Density: Region BMD T-score Z-score Classification AP Spine(L1-L4) 1.224 1.6 3.8 Normal Femoral Neck (Left) 0.653 -1.8 0.1 Osteopenia Total Hip (Left) 0.879 -0.5 1.1 Normal Femoral Neck (Right) 0.701 -1.3 0.6 Osteopenia Total Hip (Right) 0.834 -0.9 0.7 Normal Total Hip Mean 0.857 -0.7 0.9 Normal World Health Organization criteria for BMD impression classify patients as: Normal (T-score at or above -1.0), Osteopenia (T-score between -1.0 and -2.5), or Osteoporosis (T-score at or below -2.5). 10-year Fracture Risk(1): Major Osteoporotic Fracture 11% Hip Fracture 1.9% Reported Risk Factors: [place] (), Neck BMD=0.653, BMI=29.5 (1) FRAX(R) Version 3.08. Fracture probability calculated for an untreated patient. Fracture probability may be lower if the patient has received treatment. Clinical Information Provided by Patient: Patient maximum height was 61.0 Menopause Age: 58 Drinks caffeinated beverages Onset of menses at age 14 Impression: The patient has low bone mass, based on the Left Femoral Neck T-score. The patient has an estimated ten-year risk of hip fracture of 1.9% and an estimated ten-year risk of major fracture of 11%, based on the WHO FRAX algorithm. Discussion: BONE DENSITY IS LOW AT ONE OR MORE SKELETAL SITES. This patient's lowest T-score is low at one or more skeletal sites. It meets the World Health Organization's (WHO) criteria for ?low bone mass? (T-score between -1.0 and -2.5). The patient's 10-year risk of fracture as calculated by FRAX is less than the threshold where pharmacological therapy is recommended by the National Osteoporosis Foundation (NOF). However, all treatment decisions require clinical judgment and consideration of individual patient factors, including patient preferences, comorbidities, previous drug use, risk factors not captured in the FRAX model (e.g., frailty, falls, vitamin D deficiency, increased bone turnover, interval significant decline in bone density) and possible under or overestimation of fracture risk by FRAX. The patient should follow a healthful lifestyle (good nutrition with adequate calcium and vitamin D, and appropriate weight-bearing exercise). Follow-Up: Consider repeating this study in 2 to 3 years to reassess this patient's status, or sooner if there is some new clinical indication. Reported by: KATHY on 05/07/2024 9:45:00 AM. Reviewed, dictated and finalized at location [facility]
--- OUTSIDE RECORDS SUMMARY | 2024-05-07 09:22 | XMS_ITS | Referral Summary ---
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); Hyperlipidemia LDL goal <70; Primary hypertension from Last 3 Months Allergies Active Allergy Reactions Criticality Noted Date Comments Hydrochlorothiazide Rash Medium Sesame Seed Hives,Swollen tongue High 11/14/2019 Medications aspirin 81 mg chewable tablet chew 1 tablet by oral route every day 0 0 5 Active cetirizine (ZyrTEC) 10 mg tablet take 1 tablet by oral route every day 0 0 5 Active nitroglycerin (NITROSTAT) 0.[address] 1 tablet (0.4 mg total) under the tongue every 5 (five) minutes as needed for chest pain 25 tablet 11 0 Active fluticasone propionate (FLONASE) 50 mcg/actuation nasal spray 0 Active esomeprazole magnesium 20 mg tablet,delayed release (DR/EC) 0 Active loperamide (IMODIUM) 2 mg capsule Take 1 capsule (2 mg total) by mouth 4 (four) times a day as needed for diarrhea Active hyoscyamine (Levsin) 0.125 mg tablet One TID AC as needed for irritable bowel symptoms Active Bifidobacterium infantis (ALIGN) 4 mg capsule 1 capsule (4 mg total) Active atorvastatin (LIPITOR) 40 mg tabletIndicatio ns:Hyperlipidem ia LDL goal <70,Coronary artery disease [place] artery [place] heart with stable angina pectoris (HCC) TAKE 1 TABLET BY MOUTH EVERY DAY 90 tablet 3 4 Active pioglitazone (ACTOS) 15 mg tablet TAKE 1 TABLET BY MOUTH EVERY DAY 90 tablet 4 Active lisinopriL (PRINIVIL,ZESTR IL) 5 mg tablet TAKE 1 TABLET (5 MG TOTAL) BY MOUTH DAILY. 90 tablet 4 Active carvediloL (COREG) 6.25 mg tablet TAKE 1 TABLET BY MOUTH TWICE A DAY WITH FOOD 180 tablet 3 5 Active Active Problems Problem Noted Date Diagnosed Date Coronary artery disease of [place] heart with stable angina pectoris 05/16/2018 Hypertriglyceridemia 05/16/2018 Cardiomyopathy, ischemic 10/27/2016 Hyperlipidemia LDL goal <70 07/16/2014 Overview (06/22/2016): Hypertriglyceridemia Hypertension 07/16/2014 Overview (06/22/2016): Hypertension Cardiomyopathy 07/16/2014 Overview (06/22/2016): Cardiomyopathy Atypical chest pain 07/16/2014 Overview (06/22/2016): Chest pain Social History Tobacco Use Types Packs/Day Years Used Date Smoking Tobacco: Never Smokeless Tobacco: Never Alcohol Use Standard Drinks/Week Comments Yes 2 (1 standard drink = 0.6 oz pur e alcohol) Comments Unknown Sex and Gender Information Value Date Recorded Sex Assigned at Not on file Legal Sex Female 3:38 AM FOOD PRODUCTION ASSOCIATE Gender Identity Female 04/29/2019 5:24 PM FOOD PRODUCTION ASSOCIATE Sexual Orientation Straight 04/29/2019 5: 24 PM FOOD PRODUCTION ASSOCIATE Last Filed Vital Signs Vital Sign Reading Time Taken Comments Blood Pressure 110/60 02/15/2024 11:37 AM FOOD PRODUCTION ASSOCIATE Pulse 83 02/15/2024 11:37 AM FOOD PRODUCTION ASSOCIATE Temperature - - Respiratory Rate - - Oxygen Saturation 93% 02/15/2024 11:37 AM FOOD PRODUCTION ASSOCIATE Inhaled Oxygen Concentration - - Weight 71.7 kg (158 lb) 02/15/2024 11:37 AM FOOD PRODUCTION ASSOCIATE Height 154.9 cm (5' 1 ) 02/15/2024 11:37 AM FOOD PRODUCTION ASSOCIATE Body Mass Index 29.85 02/15/2024 11:37 AM FOOD PRODUCTION ASSOCIATE Plan of Treatment Not on file Insurance [facility] MEDICARE [place] [facility] [place] [id number] Care Teams Aerospace Manager Relationship Specialty Start Date End Date Cristóbal Lizama MD [address] [address] PCP - General Internal Medicine 06/21/21
--- OUTSIDE RECORDS SUMMARY | 2024-05-07 09:22 | XMS_ITS | Data Portability ---
Author Organization [place] [employer] Main Office Address [address] [place] [address] Care Team Providers Care Engineer And Geologist Name Role Phone ALTAGRACIA LIZAMA Primary Care Provider ALTAGRACIA LIZAMA Referring Provider Assessment Encounter Date Assessment Date Assessment LastModified by Organization Details LastModified Time 01/22/2023 01/22/2023 Impression: patient has trochanteric pain syndrome bilaterally which is symptomatic on the right. 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 I recommended a course of physical therapy for this problem. To quiet down the inflammation I have prescribed a Medrol Dosepak and after she has finished that she will try Aleve twice daily the next month. She denies any kidney problems liver problems or peptic ulcer disease. She will watch out for side effects and will discuss this with her Dr. Curry gilbert before instituting this in case he knows more about her history and knows of a contraindication for use of Aleve in her case. I have talked her about the option of cortisone injections and a problem with these in a patient who is 72 is that it may further soften the tendon and promote further degenerative tearing over time which I think in her case outweighs the potential benefit of giving her short-term relief for a month or 2 from her symptoms. I recommend that for the next month she rest the abductor is left hip by using a cane the right hand. Have physical therapy sure how to do this also I will see her back in 6 weeks assess her progress. If she is not significantly improved, we can consider an MRI scan of the right hip to identify the degree of tearing more precisely and rule out other pathology. 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 Recheck 6 weeks. 45 minutes were spent in total care this patient more than half the time spent in [id number] care. [email or web address] Not available 01/29/2023 10:48:11 03/05/2023 03/05/2023 HPI: Patient returns. She is here for follow-up of her right trochanteric bursitis. She with physical therapy as well as the Medrol Dosepak. She is having good improvement. At this point she is not taking any Tylenol. She still notices that her hip gets sore if she is walking too much her on her feet for long periods of time. She also notes that it is sore when she gets up from a seated position at times. Overall symptoms are very tolerable. She has finished up formal physical therapy. She is occasionally doing her exercises at home. Physical exam: Patient is walking very well today. She has some minor tenderness to palpation of the lateral hip. Impression: Patient is having improvement of her right trochanteric bursitis. I encouraged her to continue with home exercise program on a weekly basis. I have recommended that she do exercises at least 3 or 4 times a week, hopefully this will continue to improve her symptoms. We talked about avoiding the stairs at this point until she feels that she is more comfortable with those. If her symptoms change or worsen she will call otherwise we will see her back as needed. [email or web address] Not available 03/05/2023 15:53:39 Plan of Treatment Reminders Order Date Submit Date Provider Last Modified By Organization Details Last Modified Time Details Appointments None recorded. Lab vitamin D, 25-hydrox y, total, serum 025 025 [facility], [address] [place], [address], 5 10:07:40 vitamin B12, serum 025 025 [id number] [facility], [address] [place], [address], 5 10:07:40 magnesium , serum or plasma 025 025 [email or web address] [facility], [address] [place], [address], 5 10:07:40 HbA1c (hemoglob in A1c), blood 025 025 [id number] [facility], [address] [place], [address], 5 10:07:40 microalbu min, urine 025 [email or web address] [facility], [address] [place], [address], 5 10:07:40 CBC w/ auto diff 025 [id number] [facility], [address] [place], [address], 5 10:07:38 lipid panel, serum 025 [id number] [facility], [address] [place], [address], 5 10:07:39 CMP, serum or plasma 025 [id number] [facility], [address] [place], [address], 5 10:07:39 TSH, serum or plasma 025 [id number] [facility], [address] [place], [address], 5 10:07:39 T4, free, serum 025 [id number] [facility], [address] [place], [address], 5 10:07:39 vitamin B12, serum 07/04/05 [email or web address] [facility], [address] [place], [address], 4 14:10:58 magnesium , serum or plasma 024 [id number] [facility], [address] [place], [address], 4 14:10:58 lipid panel, serum 024 [id number] [facility], [address] [place], [address], 4 14:10:58 CMP, serum or plasma [email or web address] [facility], [address] [place], [address], 4 14:10:58 HbA1c (hemoglob in A1c), blood [id number] [facility], [address] [place], [address], 4 14:10:57 microalbu min, urine [facility], [address] [place], [address], 4 14:10:57 CBC w/ auto diff [facility], [address] [place], [address], 4 14:10:57 vitamin B12, serum 024 [id number] [facility], [address] [place], [address], 4 16:43:55 magnesium , serum or plasma 024 [facility], [address] [place], [address], 4 16:43:55 HbA1c (hemoglob in A1c), blood 024 [id number] [facility], [address] [place], [address], 4 16:43:54 microalbu min, urine 024 [id number] [facility], [address] [place], [address], 4 16:43:55 CBC w/ auto diff [id number] [place] [address] Outpatient Lab, [address] [place], [address], 4 16:43:53 lipid panel, serum [id number] [place] [address] Outpatient Lab, [address] [place], [address], 4 16:43:54 CMP, serum or plasma [id number] [place] [address] Outpatient Lab, [address] [place], [address], 4 16:43:54 TSH, serum or plasma [id number] [place] [address] Outpatient Lab, [address] [place], [address], 4 16:43:54 T4, free, serum [id number] [place] [address] Outpatient Lab, [address] [place], [address], 4 16:43:54 Referral None recorded. Procedures None recorded. Surgeries None recorded. Imaging None recorded. Medication Orders Medrol (Tyrone) 4 mg tablets in a dose pack 023 023 [id number] [facility], [address] [facility], [place], [address], 3 15:25:19 Patient TargetsNo targets recorded. Patient Instructions Encounter Date Encounter Id Patient Instructions Last Modified By Organization Details Last Modified Time 04/03/2023 [id number] Coronary artery disease -hypertension -hyperlipidemia -take two diabetes -GERD clinically stable. Will continue on current Rx check blood work in the form of CBC, CMP, lipid, hemoglobin A1c, magnesium and B12 level. Continue on current Rx and follow-up in six months Portions of the record may have been created with voice recognition software. Occasional wrong-word or s ound-a-like substitutions may have occurred due to the inherent limitations of voice recognition software. Read the chart carefully and recognize, using context, where substitutions have occurred. [email or web address] Not available 04/03/2023 12:21:16 10/02/2023 [id number] dementia rating scale-2* [email or web address] Not available 10/02/2023 12:24:20 alcohol misuse* [email or web address] Not available 10/02/2023 12:24:21 depression screening* [email or web address] Not available 10/02/2023 12:24:21 Timed Up and Go test (TUG)* [email or web address] Not available 10/02/2023 12:24:21 multi-dimensiona l health assessment questionnaire* [email or web address] Not available 10/02/2023 12:24:20 Personalized [facility] Plan and Screening Recommendations Advance Directives - Do you have one? Advance Directives - Do we have your advance directive on file in your health record? Primary Prevention/Interven tion (prevents or decreases the chance of common diseases from occurring) Smoking Risk: Non Smoker Alcohol Misuse Screening: Negative Weight: Appropriate Overwei ght continue your current weight loss efforts try to lose 5% of your body weight try to lose 10% of your body weight Physical activity: Need more exercise/physical activity Nutrition: Good Average Fall Risk (screened today): Low Vaccines Pneumococcal: Ordered Recommended today Recommended today, but you have declined No further needed Influenza: Your next one in the fall of this year Chronic Disease Risks Stroke: Low Risk Intermediate Risk I have no recommendations Act keegan diagnosis, Continue current treatment plan Heart Attack: Low risk Intermediate Risk I have no recommendations Act keegan diagnosis, Continue current treatment plan Clogging of the Arteries: Low risk Intermediate Risk I have no recommendations Act keegan diagnosis, Continue current treatment plan Diabetes: Low Risk Intermediate Risk Active diagnosis, Continue current treatment plan Secondary Prevention/Interven tion (detects treatable diseases before they may cause symptoms, disability, or ) Breast Cancer Screening with mammogram: Cervical/Uterine/Ov perico Cancer Screening: Osteoporosis Screening: Date Screening Last Performed: Colon Cancer Screening: Colonoscopy Date Screening Last Performed: __2017___ Eye Disease Screening: Dementia Risk: Low I have no recommendations Depression Screening: Negative [email or web address] Not available 10/02/2023 11:51:32 [facility] risk assessment stable. Follow-up for coronary artery disease, hypertension, type 2 diabetes GERD as well as trochanteric bursitis. Also obesity class one. Will consider starting on a GLP one inhibitor because of her diabetes as well as her history of cardiac disease. This is also predicated on the fact that the patient has had some problems in the past with metformin. Will continue on current Rx check blood work consisting of CBC, CMP, lipid, thyroid, hemoglobin A1c, B12 and magnesium level. Will continue on current Rx follow-up in six months Additional Orders and/or Directives: 1. orthopedic consult with her choice up at [facility] greater trochanteric bursitis Next Appointment: 6 Months Approximate Date: 03/30/2024 Portions of the record may have been created with voice recognition software. Occasional wrong-word or s ound-a-like substitutions may have occurred due to the inherent limitations of voice recognition software. Read the chart carefully and recognize, using context, where substitutions have occurred. [email or web address] Not available 10/02/2023 12:23:38 04/01/2024 [id number] Follow-up hawkins ry artery disease, hypertension, hyperlipidemia, type 2 diabetes and GERD clinically stable. Check blood work in the form of CBC, CMP, lipid, thyroid, B12, magnesium level, vitamin-D level. Recheck blood pressure next two weeks to make sure the systolic pressure is coming down. Check a back in six months. Follow Up: 6 Months Approximate Date: 09/28/2024 Portions of the record may have been created with voice recognition software. Occasional wrong-word or s ound-a-like substitutions may have occurred due to the inherent limitations of voice recognition software. Read the chart carefully and recognize, using context, where substitutions have occurred. Created: Altagracia Lizama M.D. 04.01.2024 11:17 AM [email or web address] Not available 04/01/2024 12:17:57 Reason for Referral None Reported. Results Created Date Observation Date Name Description Value Unit Range Abnormal Flag Note LastModifiedBy Organization Detail LastModifiedTime 05/08/19 24 05/09/2023 LIPID PANEL , STAND CJ cholesterol, total 158 mg/dL <200 normal Not Available [address], [address], 05/09/2023 15:22:16 05/08/19 24 05/09/2023 LIPID PANEL , STAND CJ HDL cholesterol 58 mg/dL > or = 50 normal Not Available [address], [address], 05/09/2023 15:22:16 05/08/19 24 05/09/2023 LIPID PANEL , STAND CJ triglyceride s 140 mg/dL <150 normal Not Available [address], [address], 05/09/2023 15:22:16 05/08/19 24 05/09/2023 LIPID PANEL , STAND CJ LDL-choleste rol 76 mg/dL _(hilary c) normal Refer ence range : <100 Paige able range <100 mg/dL for prima ry preve ntion ; <70 mg/dL for patie nts with CHD or diabe tic patie nts with > or = 2 CHD risk facto rs. LDL-C is now calcu lated using the Lynn n-Hop kins calcu cassandra n, which is a valid ated novel ayo d eva oshea r accur acy than the Fried jen equat ion in the estim ation of LDL-C . Lynn georges SS et al. JELLY. 2013; 310(1 9): 2061- 2068 (http ://ed ucati on.[facility]. com/f aq/FA Q164) Not Available [address], [address], 05/09/2023 15:22:16 05/08/19 24 05/09/2023 LIPID PANEL , STAND CJ chol/HDLC ratio 2.7 (calc ) <5.0 normal Not Available [address], [address], 05/09/2023 15:22:16 05/08/19 24 05/09/2023 LIPID PANEL , STAND CJ non HDL cholesterol 100 mg/dL _(hilary c) <130 normal For patie nts with diabe elzbieta plus 1 major ASCVD risk facto r, treat ing to a non-H DL-C goal of <100 mg/dL (LDL- C of <70 mg/dL ) is consi flash a latosha berman c optio n. Not Available [place] [address] [facility] [place], [address], 05/09/2023 15:22:16 05/08/19 24 05/09/2023 ALBUM IN, RANDO M URINE W/CRE ATINI NE creatinine, random urine 53 mg/dL 20-275 normal Not Available [place] [address] [place], [address], 05/09/2023 15:22:18 05/08/19 24 05/09/2023 ALBUM IN, RANDO M URINE W/CRE ATINI NE albumin, urine 0.8 mg/dL see note: normal Refer ence Range : Refer ence Range Not estab lishe d Not Available [address] [address] [place], [address], 05/09/2023 15:22:18 05/08/19 24 05/09/2023 ALBUM IN, RANDO M URINE W/CRE ATINI NE albumin/crea tinine ratio, random urine 15 mcg/m g_cre at <30 normal The ADA defin es abnor malit ies in album in excre tion as follo ws: Album inuri a Categ ory Resul t (mcg/ mg creat inine ) Maddie l to Mildl y incre ased <30 Moder ately incre ased 30-29 9 Sever mary incre ased > OR = 300 The ADA recom mends that at least two of three speci mens colle cted withi n a 3-6 month perio d be abnor mal befor e consi maria m g a patie nt to be withi n a diagn ostic categ ory. Not Available [address], [address], 05/09/2023 15:22:18 05/08/19 24 05/09/2023 TSH+F REE T4 TSH 4.41 mIU/L 0.40-4 .50 normal Not Available [address], [address], 05/09/2023 15:22:18 05/08/19 24 05/09/2023 TSH+F REE T4 T4, free 1.2 NG/dL 0.8-1. 8 normal Not Available [address], [address], 05/09/2023 15:22:18 05/08/19 24 05/09/2023 MAGNE SIUM magnesium 1.7 mg/dL 1.5-2. 5 normal Not Available [address], [address], 05/09/2023 15:22:19 05/08/19 24 05/09/2023 COMPR EHENS KEEGAN METAB OLIC PANEL glucose 146 mg/dL 65-99 high Fasti ng refer ence inter reilly For someo ne witho ut known diabe elzbieta, a gluco se value >125 mg/dL indic ates that they may have diabe elzbieta and this shoul d be confi rmed with a follo w-up test. Not Available [address], [address], 05/09/2023 15:22:19 05/08/19 24 05/09/2023 COMPR EHENS KEEGAN METAB OLIC PANEL urea nitrogen (BUN) 14 mg/dL 7-25 normal Not Available [address], [address], 05/09/2023 15:22:19 05/08/19 24 05/09/2023 COMPR EHENS KEEGAN METAB OLIC PANEL creatinine 0.76 mg/dL 0.60-1 .00 normal Not Available [address], [address], 05/09/2023 15:22:19 05/08/19 24 05/09/2023 COMPR EHENS KEEGAN METAB OLIC PANEL eGFR 84 mL/mi n/1.7 3m2 > or = 60 normal Not Available [address] [address] [place], [address], 05/09/2023 15:22:05/08/19 24 05/09/2023 COMPR EHENS KEEGAN METAB OLIC PANEL BUN/creatini ne ratio SEE NOTE: (calc ) 6-22 Not Repor rahel: BUN and Creat inine are withi n refer ence range . Not Available [address], [address], 05/09/2023 15:22:19 05/08/19 24 05/09/2023 COMPR EHENS KEEGAN METAB OLIC PANEL sodium 142 mmol/ L 135-14 6 normal Not Available [address], [address], 05/09/2023 15:22:19 05/08/19 24 05/09/2023 COMPR EHENS KEEGAN METAB OLIC PANEL potassium 4.1 mmol/ L 3.5-5. 3 normal Not Available [address], [address], 05/09/2023 15:22:19 05/08/19 24 05/09/2023 COMPR EHENS KEEGAN METAB OLIC PANEL chloride 103 mmol/ L 98-110 normal Not Available [address], [address], 05/09/2023 15:22:19 05/08/19 24 05/09/2023 COMPR EHENS KEEGAN METAB OLIC PANEL carbon dioxide 30 mmol/ L 20-32 normal Not Available [address], [address], 05/09/2023 15:22:19 05/08/19 24 05/09/2023 COMPR EHENS KEEGAN METAB OLIC PANEL calcium 9.4 mg/dL 8.6-10 .4 normal Not Available [address], [address], 05/09/2023 15:22:19 05/08/19 24 05/09/2023 COMPR EHENS KEEGAN METAB OLIC PANEL protein, total 6.9 g/dL 6.1-8. 1 normal Not Available [address], [address], 05/09/2023 15:22:19 05/08/19 24 05/09/2023 COMPR EHENS KEEGAN METAB OLIC PANEL albumin 4.4 g/dL 3.6-5. 1 normal Not Available [address], [address], 05/09/2023 15:22:19 05/08/19 24 05/09/2023 COMPR EHENS KEEGAN METAB OLIC PANEL globulin 2.5 g/dL_ (calc ) 1.9-3. 7 normal Not Available [address], [address], 05/09/2023 15:22:19 05/08/19 24 05/09/2023 COMPR EHENS KEEGAN METAB OLIC PANEL albumin/glob ulin ratio 1.8 (calc ) 1.0-2. 5 normal Not Available [address], [address], 05/09/2023 15:22:19 05/08/19 24 05/09/2023 COMPR EHENS KEEGAN METAB OLIC PANEL bilirubin, total 0.7 mg/dL 0.2-1. 2 normal Not Available [address], [address], 05/09/2023 15:22:19 05/08/19 24 05/09/2023 COMPR EHENS KEEGAN METAB OLIC PANEL alkaline phosphatase 112 U/L 37-153 normal Not Available [address], [address], 05/09/2023 15:22:19 05/08/19 24 05/09/2023 COMPR EHENS KEEGAN METAB OLIC PANEL AST 18 U/L 10-35 normal Not Available [address], [address], 05/09/2023 15:22:19 05/08/19 24 05/09/2023 COMPR EHENS KEEGAN METAB OLIC PANEL ALT 15 U/L 6-29 normal Not Available [address], [address], 05/09/2023 15:22:19 05/08/19 24 05/09/2023 CBC (INCL UDES DIFF/ PLT) white blood cell count 6.5 thous and/u L 3.8-10 .8 normal Not Available [address], [address], 05/09/2023 15:22:21 05/08/19 24 05/09/2023 CBC (INCL UDES DIFF/ PLT) red blood cell count 5.52 santo on/uL 3.80-5 .10 high Not Available [address] [place], [address], 05/09/2023 15:22:21 05/08/19 24 05/09/2023 CBC (INCL UDES DIFF/ PLT) hemoglobin 15.1 g/dL 11.7-1 5.5 normal Not Available [address], [address], 05/09/2023 15:22:21 05/08/19 24 05/09/2023 CBC (INCL UDES DIFF/ PLT) hematocrit 47.2 % 35.0-4 5.0 high Not Available [address], [address], 05/09/2023 15:22:21 05/08/19 24 05/09/2023 CBC (INCL UDES DIFF/ PLT) MCV 85.5 fL 80.0-1 00.0 normal Not Available [address], [address], 05/09/2023 15:22:21 05/08/19 24 05/09/2023 CBC (INCL UDES DIFF/ PLT) MCH 27.4 pg 27.0-3 3.0 normal Not Available [address], [address], 05/09/2023 15:22:21 05/08/19 24 05/09/2023 CBC (INCL UDES DIFF/ PLT) MCHC 32.0 g/dL 32.0-3 6.0 normal Not Available [address], [address], 05/09/2023 15:22:21 05/08/19 24 05/09/2023 CBC (INCL UDES DIFF/ PLT) RDW 13.3 % 11.0-1 5.0 normal Not Available [address], [address], 05/09/2023 15:22:21 05/08/19 24 05/09/2023 CBC (INCL UDES DIFF/ PLT) platelet count 265 thous and/u L 140-40 0 normal Not Available [address], [address], 05/09/2023 15:22:21 05/08/19 24 05/09/2023 CBC (INCL UDES DIFF/ PLT) MPV 10.1 fL 7.5-12 .5 normal Not Available [address], [address], 05/09/2023 15:22:21 05/08/19 24 05/09/2023 CBC (INCL UDES DIFF/ PLT) absolute neutrophils 3998 cells /uL 1500-7 800 normal Not Available [address], [address], 05/09/2023 15:22:21 05/08/19 24 05/09/2023 CBC (INCL UDES DIFF/ PLT) absolute lymphocytes 1788 cells /uL 850-39 00 normal Not Available [address], [address], 05/09/2023 15:22:21 05/08/19 24 05/09/2023 CBC (INCL UDES DIFF/ PLT) absolute monocytes 462 cells /uL 200-95 0 normal Not Available [address], [address], 05/09/2023 15:22:21 05/08/19 24 05/09/2023 CBC (INCL UDES DIFF/ PLT) absolute eosinophils 202 cells /uL 15-500 normal Not Available [address], [address], 05/09/2023 15:22:21 05/08/19 24 05/09/2023 CBC (INCL UDES DIFF/ PLT) absolute basophils 52 cells /uL 0-200 normal Not Available [address], [address], 05/09/2023 15:22:21 05/08/19 24 05/09/2023 CBC (INCL UDES DIFF/ PLT) neutrophils 61.5 % normal Not Available [address], [address], 05/09/2023 15:22:21 05/08/19 24 05/09/2023 CBC (INCL UDES DIFF/ PLT) lymphocytes 27.5 % normal Not Available [facility] [address], [address], 05/09/2023 15:22:21 05/08/19 24 05/09/2023 CBC (INCL UDES DIFF/ PLT) monocytes 7.1 % normal Not Available [address], [address], 05/09/2023 15:22:21 05/08/19 24 05/09/2023 CBC (INCL UDES DIFF/ PLT) eosinophils 3.1 % normal Not Available [facility] [address], [address], 05/09/2023 15:22:21 05/08/19 24 05/09/2023 CBC (INCL UDES DIFF/ PLT) basophils 0.8 % normal Not Available [address], [address], 05/09/2023 15:22:21 05/08/19 24 05/09/2023 VITAM IN B12 vitamin B12 376 pg/mL 200-11 00 normal Pleas e Note: Altho ugh the refer ence range for vitam in B12 is 200-1 100 pg/mL , it has been repor rahel that betwe en 5 and 10% of patie nts with value s betwe en 200 and 400 pg/mL may exper ience neuro psych iatri c and hemat ologi c abnor malit ies due to occul t B12 defic iency ; less than 1% of patie nts with value s above 400 pg/mL will have sympt oms. Not Available [facility] [address] [address] [place], [address], 05/09/2023 15:22:22 05/08/19 24 05/09/2023 HEMOG LOBIN A1C hemoglobin A1C 6.7 %_of_ total _HGB <5.7 high For someo ne witho ut known diabe elzbieta, a hemog lobin A1c value of 6.5% or great er indic ates that they may have diabe elzbieta and this shoul d be confi rmed with a follo w-up test. For someo ne with known diabe elzbieta, a value <7% indic ates that their diabe elzbieta is well contr olled and a value great er than or equal to 7% indic ates subop timal contr ol. A1c targe ts shoul d be indiv idual ized based on durat ion of diabe elzbieta, age, comor bid condi tions , and other consi derat ions. Curre ntly, no conse nsus exist s regar ding use of hemog lobin A1c for diagn osis of diabe elzbieta for child maci. This test was perfo rmed on the [facility] c[facility] platf orm. Pleas e be advis ed that [facility] will move hemog lobin A1c testi ng to the [facility] platf orm soon. In gener al, direc t poli rison of the resul ts from diffe rent platf orms is not recom torito d. Not Available [facility] [address] [address], [place], [address], 05/09/2023 15:22:23 11/05/19 24 11/06/2023 LIPID PANEL , STAND CJ cholesterol, total 124 mg/dL <200 normal Not Available [facility] [address] [place] [address] [place], [address], 11/06/2023 11:41:38 11/05/19 24 11/06/2023 LIPID PANEL , STAND CJ HDL cholesterol 44 mg/dL > or = 50 low Not Available [facility] [place] [address] [place], [address], 11/06/2023 11:41:38 11/05/19 24 11/06/2023 LIPID PANEL , STAND CJ triglyceride s 154 mg/dL <150 high Not Available [address], [address], 11/06/2023 11:41:38 11/05/19 24 11/06/2023 LIPID PANEL , STAND CJ LDL-choleste rol 56 mg/dL _(hilary c) normal Refer ence range : <100 Paige able range <100 mg/dL for prima ry preve ntion ; <70 mg/dL for patie nts with CHD or diabe tic patie nts with > or = 2 CHD risk facto rs. LDL-C is now calcu lated using the Lynn n-Hop kins calcu cassandra n, which is a valid ated novel yao ike kwoni benedicto dorie r accur acy than the Fried jen equat ion in the estim ation of LDL-C . Lynn georges SS et al. JELLY. 2013; 310(1 9): 2061- 2068 (http ://ed ucati on.[employer]. com/f aq/FA Q164) Not Available [address], [address], 11/06/2023 11:41:38 11/05/19 24 11/06/2023 LIPID PANEL , STAND CJ chol/HDLC ratio 2.8 (calc ) <5.0 normal Not Available [address], [address], 11/06/2023 11:41:38 11/05/19 24 11/06/2023 LIPID PANEL , STAND CJ non HDL cholesterol 80 mg/dL _(hilary c) <130 normal For patie nts with diabe elzbieta plus 1 major ASCVD risk facto r, treat ing to a non-H DL-C goal of <100 mg/dL (LDL- C of <70 mg/dL ) is consi dered a thera peuti c optio n. Not Available [address] [address] [place], [address], 11/06/2023 11:41:38 11/05/19 24 11/06/2023 ALBUM IN, RANDO M URINE W/CRE ATINI NE creatinine, random urine 139 mg/dL 20-275 normal Not Available [address] [address] [place], [address], 11/06/2023 11:41:39 11/05/19 24 11/06/2023 ALBUM IN, RANDO M URINE W/CRE ATINI NE albumin, urine 1.3 mg/dL see note: normal Refer ence Range : Refer ence Range Not estab lishe d Not Available [address] [address] [place], [address], 11/06/2023 11:41:39 11/05/19 24 11/06/2023 ALBUM IN, RANDO M URINE W/CRE ATINI NE albumin/crea tinine ratio, random urine 9 mg/g_ creat <30 normal The ADA defin es abnor malit ies in album in excre tion as follo ws: Album inuri a Categ ory Resul t (mg/g creat inine ) Maddie l to Mildl y incre ased <30 Moder ately incre ased 30-29 9 Sever mary incre ased > OR = 300 The ADA recom mends that at least two of three speci mens colle cted withi n a 3-6 month perio d be abnor mal befor e consi maria m g a patie nt to be withi n a diagn ostic categ ory. Not Available [address] [address] [place], [address], 11/06/2023 11:41:39 11/05/19 24 11/06/2023 MAGNE SIUM magnesium 1.8 mg/dL 1.5-2. 5 normal Not Available [facility] [address] [address] [place], [address], 11/06/2023 11:41:39 11/05/19 24 11/06/2023 COMPR EHENS KEEGAN METAB OLIC PANEL glucose 140 mg/dL 65-99 high Fasti ng refer ence inter reilly For someo ne witho ut known diabe elzbieta, a gluco se value >125 mg/dL indic ates that they may have diabe elzbieta and this shoul d be confi rmed with a follo w-up test. Not Available [address] [place], [address], 11/06/2023 11:41:40 11/05/19 24 11/06/2023 COMPR EHENS KEEGAN METAB OLIC PANEL urea nitrogen (BUN) 14 mg/dL 7-25 normal Not Available [address], [address], 11/06/2023 11:41:40 11/05/19 24 11/06/2023 COMPR EHENS KEEGAN METAB OLIC PANEL creatinine 0.70 mg/dL 0.60-1 .00 normal Not Available [address], [address], 11/06/2023 11:41:40 11/05/19 24 11/06/2023 COMPR EHENS KEEGAN METAB OLIC PANEL eGFR 92 mL/mi n/1.7 3m2 > or = 60 normal Not Available [address], [address], 11/06/2023 11:41:40 11/05/19 24 11/06/2023 COMPR EHENS KEEGAN METAB OLIC PANEL BUN/creatini ne ratio SEE NOTE: (calc ) 6-22 Not Repor rahel: BUN and Creat inine are withi n refer ence range . Not Available [address], [address], 11/06/2023 11:41:40 11/05/19 24 11/06/2023 COMPR EHENS KEEGAN METAB OLIC PANEL sodium 143 mmol/ L 135-14 6 normal Not Available [address], [address], 11/06/2023 11:41:40 11/05/19 24 11/06/2023 COMPR EHENS KEEGAN METAB OLIC PANEL potassium 4.4 mmol/ L 3.5-5. 3 normal Not Available [address], [address], 11/06/2023 11:41:40 11/05/19 24 11/06/2023 COMPR EHENS KEEGAN METAB OLIC PANEL chloride 109 mmol/ L 98-110 normal Not Available [address], [address], 11/06/2023 11:41:40 11/05/19 24 11/06/2023 COMPR EHENS KEEGAN METAB OLIC PANEL carbon dioxide 26 mmol/ L 20-32 normal Not Available [address], [address], 11/06/2023 11:41:40 11/05/19 24 11/06/2023 COMPR EHENS KEEGAN METAB OLIC PANEL calcium 8.9 mg/dL 8.6-10 .4 normal Not Available [address], [address], 11/06/2023 11:41:40 11/05/19 24 11/06/2023 COMPR EHENS KEEGAN METAB OLIC PANEL protein, total 6.4 g/dL 6.1-8. 1 normal Not Available [address], [address], 11/06/2023 11:41:40 11/05/19 24 11/06/2023 COMPR EHENS KEEGAN METAB OLIC PANEL albumin 4.1 g/dL 3.6-5. 1 normal Not Available [address], [address], 11/06/2023 11:41:40 11/05/19 24 11/06/2023 COMPR EHENS KEEGAN METAB OLIC PANEL globulin 2.3 g/dL_ (calc ) 1.9-3. 7 normal Not Available [address], [address], 11/06/2023 11:41:40 11/05/19 24 11/06/2023 COMPR EHENS KEEGAN METAB OLIC PANEL albumin/glob ulin ratio 1.8 (calc ) 1.0-2. 5 normal Not Available [address], [address], 11/06/2023 11:41:40 11/05/19 24 11/06/2023 COMPR EHENS KEEGAN METAB OLIC PANEL bilirubin, total 0.5 mg/dL 0.2-1. 2 normal Not Available [address], [address], 11/06/2023 11:41:40 11/05/19 24 11/06/2023 COMPR EHENS KEEGAN METAB OLIC PANEL alkaline phosphatase 104 U/L 37-153 normal Not Available [address], [address], 11/06/2023 11:41:40 11/05/19 24 11/06/2023 COMPR EHENS KEEGAN METAB OLIC PANEL AST 15 U/L 10-35 normal Not Available [address], [address], 11/06/2023 11:41:40 11/05/19 24 11/06/2023 COMPR EHENS KEEGAN METAB OLIC PANEL ALT 12 U/L 6-29 normal Not Available [address], [address], 11/06/2023 11:41:40 11/05/19 24 11/06/2023 CBC (INCL UDES DIFF/ PLT) white blood cell count 6.0 thous and/u L 3.8-10 .8 normal Not Available [address], [address], 11/06/2023 11:41:40 11/05/19 24 11/06/2023 CBC (INCL UDES DIFF/ PLT) red blood cell count 5.30 santo on/uL 3.80-5 .10 high Not Available [address], [address], 11/06/2023 11:41:40 11/05/19 24 11/06/2023 CBC (INCL UDES DIFF/ PLT) hemoglobin 14.4 g/dL 11.7-1 5.5 normal Not Available [address], [address], 11/06/2023 11:41:40 11/05/19 24 11/06/2023 CBC (INCL UDES DIFF/ PLT) hematocrit 46.2 % 35.0-4 5.0 high Not Available [address], [address], 11/06/2023 11:41:40 11/05/19 24 11/06/2023 CBC (INCL UDES DIFF/ PLT) MCV 87.2 fL 80.0-1 00.0 normal Not Available [address], [address], 11/06/2023 11:41:40 11/05/19 24 11/06/2023 CBC (INCL UDES DIFF/ PLT) MCH 27.2 pg 27.0-3 3.0 normal Not Available [facility] [address], [address], 11/06/2023 11:41:40 11/05/19 24 11/06/2023 CBC (INCL UDES DIFF/ PLT) MCHC 31.2 g/dL 32.0-3 6.0 low Not Available [address] [place], [address], 11/06/2023 11:41:40 11/05/19 24 11/06/2023 CBC (INCL UDES DIFF/ PLT) RDW 13.4 % 11.0-1 5.0 normal Not Available [address], [address], 11/06/2023 11:41:40 11/05/19 24 11/06/2023 CBC (INCL UDES DIFF/ PLT) platelet count 222 thous and/u L 140-40 0 normal Not Available [address], [address], 11/06/2023 11:41:40 11/05/19 24 11/06/2023 CBC (INCL UDES DIFF/ PLT) MPV 10.4 fL 7.5-12 .5 normal Not Available [address], [address], 11/06/2023 11:41:40 11/05/19 24 11/06/2023 CBC (INCL UDES DIFF/ PLT) absolute neutrophils 3696 cells /uL 1500-7 800 normal Not Available [address], [address], 11/06/2023 11:41:40 11/05/19 24 11/06/2023 CBC (INCL UDES DIFF/ PLT) absolute lymphocytes 1542 cells /uL 850-39 00 normal Not Available [address], [address], 11/06/2023 11:41:40 11/05/19 24 11/06/2023 CBC (INCL UDES DIFF/ PLT) absolute monocytes 498 cells /uL 200-95 0 normal Not Available [address], [address], 11/06/2023 11:41:40 11/05/19 24 11/06/2023 CBC (INCL UDES DIFF/ PLT) absolute eosinophils 222 cells /uL 15-500 normal Not Available [address], [address], 11/06/2023 11:41:40 11/05/19 24 11/06/2023 CBC (INCL UDES DIFF/ PLT) absolute basophils 42 cells /uL 0-200 normal Not Available [address], [address], 11/06/2023 11:41:40 11/05/19 24 11/06/2023 CBC (INCL UDES DIFF/ PLT) neutrophils 61.6 % normal Not Available [address], [address], 11/06/2023 11:41:40 11/05/19 24 11/06/2023 CBC (INCL UDES DIFF/ PLT) lymphocytes 25.7 % normal Not Available [address], [address], 11/06/2023 11:41:40 11/05/19 24 11/06/2023 CBC (INCL UDES DIFF/ PLT) monocytes 8.3 % normal Not Available [address], [address], 11/06/2023 11:41:40 11/05/19 24 11/06/2023 CBC (INCL UDES DIFF/ PLT) eosinophils 3.7 % normal Not Available [address], [address], 11/06/2023 11:41:40 11/05/19 24 11/06/2023 CBC (INCL UDES DIFF/ PLT) basophils 0.7 % normal Not Available [address], [address], 11/06/2023 11:41:40 11/05/19 24 11/06/2023 VITAM IN B12 vitamin B12 291 pg/mL 200-11 00 normal Pleas e Note: Altho ugh the refer ence range for vitam in B12 is 200-1 100 pg/mL , it has been repor rahel that betwe en 5 and 10% of patie nts with value s betwe en 200 and 400 pg/mL may exper ience neuro psych iatri c and hemat ologi c abnor malit ies due to occul t B12 defic iency ; less than 1% of patie nts with value s above 400 pg/mL will have sympt oms. Not Available [facility] [address] [address], [place], [address], 11/06/2023 11:41:41 11/05/1911/06/2023 HEMOG LOBIN A1C hemoglobin A1C 7.0 %_of_ total _HGB <5.7 high For someo ne witho ut known diabe elzbieta, a hemog lobin A1c value of 6.5% or great er indic ates that they may have diabe elzbieta and this shoul d be confi rmed with a follo w-up test. For someo ne with known diabe elzbieta, a value <7% indic ates that their diabe elzbieta is well contr olled and a value great er than or equal to 7% indic ates subop timal contr ol. A1c targe ts shoul d be indiv idual ized based on durat ion of diabe elzbieta, age, comor bid condi tions , and other consi derat ions. Curre ntly, no conse nsus exist jennifer diane use of hemog lobin A1c for diagn osis of diabe elzbieta for child maci. This test was perfo rmed on the [facility] c[facility] platf orm. Effec tive , a bazan e in test platf orms from the [facility] [facility] t[facility] to the [facility] c[facility] may have shift ed HbA1c resul ts poli red to histo rical resul ts. Based on labor atory valid ation testi ng condu cted at [facility] , the [facility] platf orm relat keegan to the [employer] platf orm had an avera ge incre ase in HbA1c value of < or = 0.3%. This diffe rence is withi n accep rahel varia bilit y estab lishe d by the Natlise pearce [employer] hemog lobin Stand alisa zelaya Progr am. Note that not all indiv idual s will have had a shift in their resul ts and direc t poli rison s betwe en histo rical and curre nt resul ts for testi ng condu cted on diffe rent platf orms is not recom torito d. Not Available [facility] [id number], [place], [address], 11/06/2023 11:41:41 12/28/1912/27/2022 XR, hip, unila teral , 2 or 3 view No observ ation record ed. [email or web address] [place] [address] [address], [place], [address], 12/27/2022 17:36:23 12/29/19 23 12/27/2022 XR, hip, bilat eral No observ ation record ed. [email or web address] Not Available 2022 13:53:26 11/21/19 24 11/21/2023 MAMMO , scree bear, digit al, bilat eral No observ ation record ed. [email or web address] [place] [address] [address], [place], [address], 11/21/2023 16:48:40 Result Notes None recorded. Problems Name Problem SNOMED Code Status Onset Date Resolution Date Notes Provider Name and Address Organization Details Recorded Time Irritable bowel syndrome 62564777 Active 2021 Not Available [facility] 3 00:29:12 Gastroesop hageal reflux disease 151297506 Active 2021 Not Available [facility] 3 00:29:13 Type 2 diabetes mellitus without complicati on 034159852 Active 2021 Not Available [facility] 3 00:29:13 Vitamin D deficiency 39401812 Active 2021 Not Available [facility] 3 00:29:13 Coronary arterioscl erosis 06827913 Active 2021 Not Available [facility] 3 00:29:13 Hyperlipid emia 79277395 Active 2021 Not Available [facility] 3 00:29:13 Essential hypertensi on 65579236 Active 2021 Not Available [facility] 3 00:29:13 COVID-19 089043713 Active 2021 Not Available [facility] 3 00:29:13 Pain in right hip joint 5140329609892 02 Active 2022 Altagracia Lizama MD [address], [place], [address] , [employer] [facility] 3 10:38:42 Trochanter ic bursitis of right hip 9418960975397 00 Active 2023 Altagracia Lizama MD [address], [place], [address] , [facility] 4 12:15:29 Obese class I 8280999518229 07 Active 2023 Altagracia Lizama MD [address] [facility] [address], [place], [address] , [facility] 4 12:17:53 Problem Notes None recorded. Procedures Surgical History Date Name Laterality Status Provider Name and Address Organization Details Recorded Time Medicare Wellness CPT Code, subsequent completed Arlene Juarez RN [facility] [employer] [facility] 10/02/2023 11:44:51 Imaging Results Imaging Date Name Status LastModified by [facility] Details LastModified Time 12/27/2022 XR, hip, unilateral, 2 or 3 view completed [email or web address] [facility] [address], [place], [address], 12/27/2022 17:36:23 12/27/2022 XR, hip, bilateral completed Information not available 12/28/2022 13:53:26 11/21/2023 MAMMO, screening, digital, bilateral completed [email or web address] [facility] [address], [place], [address], 11/21/2023 16:48:40 Procedure Notes None recorded. Medical Equipment None Reported. Allergies Allergen ID Allergen Name Allergen Category Reaction Reaction Severity Criticality Documentation Date Start Date Code Code System Note Provider Name and Address Organization Details Recorded Time 06886 sesame seed extract food Not available Not available Not available 05/18/2022 20925 46 RxNorm Not Available [facility] 3 00:30:56 89797 sesame oil food,medi cation Not available Not available Not available 05/18/2022 89991 47 RxNorm Not Available [facility] 3 00:30:56 [address]1685 hydrochlo rothiazid e medicatio n Not available Not available Not available 05/18/2022 5487 RxNorm Not Available [facility] 3 00:30:56 62118 metformin medicatio n nausea Not available low 10/02/2023 6809 RxNorm Altagracia Lizama MD [facility] [address], [place], [address] [place] [address] [employer] [facility] 4 12:16:57 Medications Name Sig Start Date Stop Date Status Note LastModified by Organization Details LastModified Time pioglitazon e 15 mg tablet TAKE 1 TABLET BY MOUTH EVERY DAY active Not Available Not Available No t Available atorvastati n 40 mg tablet TAKE 1 TABLET BY MOUTH EVERY DAY active Not Available Not Available No t Available Levsin 0.125 mg tablet One TID AC as needed for irritable bowel symptoms active Not Available Not Available No t Available carvedilol 6.25 mg tablet TAKE 1 TABLET BY MOUTH TWICE A DAY WITH FOOD active Not Available Not Available No t Available Nexium 40 mg capsule,del ayed release Take 1 capsule every day by oral route. 01/03 completed Not Available Not Available Not Available Zyrtec 10 mg tablet Take 1 tablet every day by oral route. 2021 active Not Available Not Available Not Avai lable aspirin 81 mg tablet,emory yed release Take 1 tablet every day by oral route. 2021 active Not Available Not Available Not Avai lable Nexium 20 mg capsule,del ayed release Take 1 capsule every day by oral route. 2021 active Not Available Not Available Not Avai lable Imodium A-D 2 mg tablet TAKE 2 TABLETS (4 MG) BY ORAL ROUTE AFTER 1ST LOOSE STOOL AND 1 TABLET (2 MG) AFTER EACH NEXT BOWEL MOVEMENT; DO NOT EXCEED 16 MG IN 24HRS 2021 active Not Available Not Available Not Avai lable nitroglycer in 0.[address] 1 TABLET (0.4 MG) BY SUBLINGUA L ROUTE AT 1ST SIGN OF ATTACK; MAY REPEAT EVERY 5 MINUTES UP TO 3 TABS; IF NO RELIEF SEEK MEDICAL HELP 2021 active Not Available Not Available Not Avai lable lisinopril 5 mg tablet TAKE 1 TABLET (5 MG TOTAL) BY MOUTH DAILY. active Not Available Not Available No t Available ergocalcife rol (vitamin D2) 1,250 mcg (50,000 unit) capsule TAKE 1 CAPSULE EVERY WEEK BY ORAL ROUTE. 01/22 completed Not Available Not Available Not Available methylpredn isolone 4 mg tablets in a dose pack TAKE 6 TABLETS ON DAY 1 DIRECTED ON PACKAGE AND DECREASE BY 1 TAB EACH DAY FOR A TOTAL OF 6 DAYS 03/05 completed Not Available Not Available Not Available Align (B.infantis ) 10.5 mg (10 million cell) chewable tablet Take 1 tablet every day by oral route. active Not Available Not Available No t Available Paxlovid 300 mg (150 mg x 2)-100 mg tablets in a dose pack Take two of he 150 mg tablets and one of the 100 mg tablets twice daily for five days active Not Available Not Available No t Available Mounjaro 5 mg/0.5 mL subcutaneou s pen injector INJECT 5 MG BY SUBCUTANE OUS ROUTE ONCE WEEKLY 04/01 completed Not Available Not Available Not Available Mounjaro 2.5 mg/0.5 mL subcutaneou s pen injector INJECT 2.5 MG SUBCUTANE OUSLY ONCE WEEKLY FOR 4 WEEKS 10/22 completed Not Available Not Available Not Available Vitals Date Recorded Body height Body mass index (BMI) Body weight Provider Name and Address Organization Details Last Updated DateTime 01/22/2023 153.67 cm 30.2 kg/m2 25513 g THAI Kruger [facility] [employer] [facility] 01/22/2023 17:05:51 Date Recorded Body height Provider Name an d Address Organization Details Last Updated DateTime 03/05/2023 153.67 cm THAI Kruger [facility] 03/05/2023 15:25:07 Date Recorded Body height Body mass index (BMI) Body weight Heart rate Body temperature Oxygen saturation Oxygen saturation in Arterial blood by Pulse oximetry Systolic blood pressure Diastolic blood pressure Provider Name and Address Organization Details Last Updated DateTime 4 154.94 cm 30.2 kg/m2 13822.7 8 g 92 /min 97 [degF] 95 % 95 % 122 mm[Hg] 84 mm[Hg] Mireille Davalos [facility] [employer] [facility] 4 11:59:30 Date Recorded Body height Body mass index (BMI) Body weight Heart rate Body temperature Oxygen saturation Oxygen saturation in Arterial blood by Pulse oximetry Systolic blood pressure Diastolic blood pressure Provider Name and Address Organization Details Last Updated DateTime 4 154.94 cm 30.2 kg/m2 76381.7 8 g 86 /min 97 [degF] 95 % 95 % 120 mm[Hg] 64 mm[Hg] Mireille Davalos [facility] 4 11:36:54 Date Recorded Pain severity - 0-10 verbal numeric rating [Score] - Reported Provider Name and Address Organization Details Last Updated DateTime 10/02/2023 4 Arlene Juarez RN [facility] 10/02/2023 11:44:58 Date Recorded Body height Body mass index (BMI) Body weight Heart rate Body temperature Oxygen saturation Oxygen saturation in Arterial blood by Pulse oximetry Systolic blood pressure Diastolic blood pressure Provider Name and Address Organization Details Last Updated DateTime 5 154.94 cm 29.9 kg/m2 36618.5 9 g 64 /min 97 [degF] 95 % 95 % 160 mm[Hg] 80 mm[Hg] Mirielle Davalos [facility] [employer] 5 11:46:18 Social History Question Answer Notes LastModified by Organizat ion Details LastModified Time Tobacco Smoking Status Never Smoker Not Available [facility] 05/18/2022 00:26:25 Do You Have An Advance Directive? Yes [id number] Information not available 05/18/2022 What Is Your Level Of Alcohol Consumption? Occasional [id number] Information not available 05/18/2022 Are You Blind Or Do You Have Difficulty Seeing? No MIGRATION.[id number] [id number] Information not available 05/18/2022 Are You Deaf Or Do You Have Serious Difficulty Hearing? No [id number].[id number] Information not available 05/18/2022 What Type Of Diet Are You Following? REGULAR [id number].[id number] 3923 Information not available 05/18/2022 Have There Been Any Changes To Your Family Or Social Situation? No MIGRATION.[id number] 0801 Information not available 05/18/2022 What Is The Fluoride Status Of Your Home? Unknown MIGRATION.[id number] [id number] Information not available 05/18/2022 Where Do You Live? SingleLevelHouse MIGRATION.[id number] 6698 Information not available 05/18/2022 Are You Able To Care For Yourself? Yes [email or web address] Information not available 10/02/2023 Are You Blind Or Do Yo Have Difficulty Seeing? No [email or web address] Information not available 10/02/2023 Are You Deaf Or Do You Have Serious Difficulty Hearing? No [email or web address] Information not available 10/02/2023 Live Alone Of With Others? With Others [email or web address] Information not available 10/02/2023 Do You Have A Medical Power Of Digital Marketing Apprentice? Yes [id number] Information not available 05/18/2022 What Was The Date Of Your Most Recent Tobacco Screening? 10/02/2023 Information not available 10/02/2023 Do You Have Any Pets? No MIGRATION.[id number] 6158 Information not available 05/18/2022 What Is Your Relationship Status? MIGRATION.[id number] Information not available 05/18/2022 Do You Use Your Seat Belt Or Car Seat Routinely? Yes MIGRATION.[id number] Information not available 05/18/2022 Do You Have Smoke And Carbon Monoxide Detectors In Your Home? Yes MIGRATION.192690 4946 Information not available 05/18/2022 Are You Passively Exposed To Smoke? No MIGRATION.[id number] 8765 Information not available 05/18/2022 Are There Any Smokers In Your House? No MIGRATION.[id number] 8825 Information not available 05/18/2022 Do You Use Sunscreen Routinely? Yes MIGRATION.455267 4560 Information not available 05/18/2022 Do You Have Any Dietary Restrictions? No MIGRATION.759074 5689 Information not available 05/18/2022 Sex: Unknown Functional Status Question Answer Note LastModified by Organizat ion Details LastModified Time Do you have difficulty walking or climbing stairs? No MIGRATION.[id number] 026 Information not available 05/18/2022 Do you have transportation difficulties? No MIGRATION.[id number] 026 Information not available 05/18/2022 Are you able to walk? YESWOREST MIGRATION.[id number] 026 Information not available 05/18/2022 Do you have difficulty doing errands alone? No MIGRATION.[id number] 026 Information not available 05/18/2022 Are you able to care for yourself? Yes [id number].[id number] 026 Information not available 05/18/2022 Do you have difficulty dressing or bathing? No MIGRATION.[id number] 026 Information not available 05/18/2022 What is your exercise level? Occasional MIGRATION.[id number] 026 Information not available 05/18/2022 Mental Status Question Answer Note LastModified by Organizat ion Details LastModified Time Do you have difficulty concentrating, remembering or making decisions? No [id number] Information not available 05/18/2022 Family History Nothing Reported Notes:Mother 79 MVA, CA BG, HTN and BDM Father 85 CVA One brother in infancy still born Medical History Condition Response BLINDNESS N NERVE DISEASE N RHEUMATIC FEVER N BLADDER PROBLEMS N KIDNEY STONES N MRSA N OTHER # 1 N POLIO N LUNG DISEASE/DISORDER N HISTORY OF DRUG ABUSE N RADIATION / CHEMOTHERAPY N COPD N Other # 2 N BLOOD DISEASES N EAR OR HEARING PROBLEMS N MUMPS N SHINGLES N BOWEL PROBLEMS N DEPRESSION (INCLUDING POST ) N STROKE/TIA N ULCERS N BENIGN PROSTATIC HYPERPLASIA N MEASLES N HYPOTENSION N MYOCARDIAL INFARCTION N OBESITY N GERD/NAUSEA N ANEURYSM N URINARY/BLADDER/KIDNEY PROBLEMS N CORONARY ARTERY DISEASE (CAD) Y ADDICTION CONCERNS N Impotence N ENDOMETRIOSIS N USE OF BLOOD THINNERS N SKIN PROBLEMS N GASTROINTESTINAL DISORDER N PERIPHERAL VASCULAR DISEASE N MUSCLE,JOINT OR BONE PROBLEMS N GASTROINTESTINAL BLEEDING N BLOOD CLOTS N ASTHMA N CATARACTS N ERECTILE DYSFUNCTION N VARICOSITIES N GI PROBLEMS N Low Testosterone N INFERTILITY N AIDS/HIV N CHEMOTHERAPY / RADIATION N LIVER DISEASE N MALE HYPOGONADISM N HYPERTENSION Y Deficiency N TOURETTE'S N ANXIETY DISORDER N BLOOD TRANSFUSION N ANEMIA/BLOOD DISORDER N CHRONIC EAR INFECTIONS N BRONCHITIS N TUBERCULOSIS N GLAUCOMA N FOOT PROBLEM N DIVERTICULITIS N SLEEP APNEA N CHICKENPOX N INFECTIOUS DISEASE N PROSTATE N HEART ARRHYTHMIA N INSOMNIA N HIGH CHOLESTEROL / HYPERLIPIDEMIA N EYE PROBLEMS N HYPERTHYROIDISM N EDEMA N CHRONIC PAIN SYNDROME N HYPOTHYROIDISM N CAROTID BLOCKAGE N CONSTIPATION N BACK / NECK PROBLEMS N HAVE YOU BEEN HOSPITALIZED OR SEEN IN [facility] IN THE PAST YEAR ? N ATHEROSCLEROSIS N BREAST PROBLEMS N DIALYSIS N ECZEMA N OSTEOPOROSIS N ARTHRITIS N NO SIGNIFICANT PAST MEDICAL HISTORY N APPENDICITIS N DIABETES, TYPE Y BAD TEETH N ENT N HEARTBURN / REFLUX N AUTISM SPECTRUM DISORDER (ASD) N HEPATITIS / LIVER DISEASE N GOUT N SLEEP DISORDER N ALZHEIMER'S DISEASE N Brain Problems N DEMENTIA N HERPES N SEIZURES/EPILEPSY N HEADACHES/MIGRAINES N VASCULAR DISEASE N PACEMAKER N Blood Disorder N DIZZINESS N HEART DISEASE/HEART PROBLEMS N KIDNEY DISEASE N MULTIPLE SCLEROSIS N CANCER: SPECIFY N CARDIAC ARRHYTHMIA N ATRIAL FIBRILLATION N [place] N PULMONARY EMBOLISM N AUTOIMMUNE DISEASE N Gynecological HistoryNo gynecological history recorded. Obstetrics History GPAL:G 0 P 0 0 0 0 Immunizations Vaccine Type Date Status Note Provider Nam e and Address Organization Details Recorded Time SARS-COV-2 (COVID-19) vaccine, UNSPECIFIED 2 completed Not Available [facility] 05/18/2022 00:30:51 Influenza, split virus, quadrivalent, preservative 1 completed Not Available [facility] 05/18/2022 00:30:51 SARS-COV-2 (COVID-19) vaccine, UNSPECIFIED 1 completed Not Available [facility] 05/18/2022 00:30:51 SARS-COV-2 (COVID-19) vaccine, UNSPECIFIED 1 completed Not Available [facility] 05/18/2022 00:30:51 SARS-COV-2 (COVID-19) vaccine, UNSPECIFIED 1 completed Not Available [facility] 05/18/2022 00:30:52 DTaP 0 completed Not Available [facility] 05/18/2022 00:30:52 pneumococcal polysaccharide PPV23 9 completed Not Available [facility] 05/18/2022 00:30:52 Pneumococcal conjugate PCV 13 8 completed Not Available [facility] 05/18/2022 00:30:52 Influenza, high-dose, quadrivalent, PF 2 completed Not Available [facility] 05/18/2022 00:30:52 influenza nasal, unspecified formulation 3 completed LORENZA Evangelista, [place] - [place] [facility] [employer] [facility] 12/26/2022 10:32:17 Past Encounters Encounter ID Performer Location Encounter Start Date Encounter Closed Date Diagnosis/Indication Diagnosis SNOMED-CT Code Diagnosis ICD10 Code Diagnosis Note [id number] [facility] Internal Med Adamvi llmelodie [address] [place] [address] y , [place] [address] 05/10/2021 00:00:00 05/10/2021 15:40:08 [id number] [facility] Internal Med Adam[place] llmelodie [address] [place] [address] [place] [address] 09/06/2021 00:00:00 09/06/2021 15:14:38 [id number] [facility] Internal Med Adam[place] llmelodie [address] [place] [address] [place] [address] 01/03/2022 00:00:00 01/03/2022 15:03:15 [id number] [facility] Internal Med dAamvi lle [address] [place] [address] [place] [address] 05/09/2022 00:00:00 05/09/2022 16:33:00 [id number] Altagracia Lizama MD [facility] Internal Med [place] [address] [place] [address] [place] [address] 09/15/2022 11:13:08 09/15/2022 11:51:48 Coronary arteriosclerosis 42195431 I25.10 Essential hypertension 68106288 I10 Hyperlipidemia 04623700 E78.5 Type 2 lawanda betes mellitus without complication 750614154 E11.9 Gastroesop hageal reflux disease 773570003 K21.9 [id number] Altagracia Lizama MD [facility] Internal Med [place] [address] [facility] [place] [address] 12/26/2022 10:25:10 12/26/2022 10:45:47 Pain in right hip joint 3024744349 04178 M25.749 [id number] Dong Myers MD [facility] [place] [address] [place] [address] 01/22/2023 16:28:44 01/29/2023 16:25:25 Pain in right hip joint [id number] 78982 M25.249 [id number] YADIRA Motta [facility] [place] [address] [place] [address] 03/05/2023 15:21:56 03/05/2023 15:57:25 Pain in right hip joint [id number] 99876 M25.657 [id number] Altagracia Lizama MD [facility] Internal Med [place] [address] [facility] [place] [address] 04/03/2023 11:21:49 04/03/2023 12:26:23 Coronary arteriosclerosis 28005921 I25.10 Essential hypertension 82921099 I10 Hyperlipidemia 26782660 E78.5 Type 2 lawanda betes mellitus without complication 076135088 E11.9 Gastroesop hageal reflux disease 850400727 K21.9 [id number] Altagracia Lizama MD [facility] Internal Med [place] [address] [place] [address] [place] [address] 10/02/2023 11:23:43 10/02/2023 12:30:43 Adult health examination 030438809 Z00.00 Screening for disorder 028322165 Z13.9 Coronary arteriosclerosis 60478602 I25.10 Essential hypertension 40451829 I10 Type 2 lawanda betes mellitus without complication 495198770 E11.9 Gastroesop hageal reflux disease 614457758 K21.9 Trochanter ic bursitis of right hip 6388757892 95417 M70.61 Obese class I 5136054408 20076 E66.9 Hyperlipidemia 84367707 E78.5 [id number] Altagracia Lizama MD [facility] Internal [facility] [address], [place] [address] 04/01/2024 11:23:33 04/01/2024 12:23:03 Coronary arteriosclerosis 41502283 I25.10 Essential hypertension 64108185 I10 Hyperlipidemia 31674002 E78.5 Type 2 lawanda betes mellitus without complication 923849698 E11.9 Gastroesop hageal reflux disease 492172506 K21.9 Vitamin D deficiency 347 06885 E55.9 Health Concerns Section Related Observation LastModified by Organization Detai ls LastModified Time None Recorded Concern Status LastModified by Organization Details LastModified Time None Recorded Advance Directives Directive Y: Payers Encounter Date Sequence Insurance Name Policy Number Policy Orellana Covered Member ID Orellana Member ID Guarantor Name 01/22/2023 1 [employer] (MEDICARE REPLACEMENT HMO) [id number] L Gregoria Ennis Bonzelet [id number] Kofi Archer Bijuzelet 03/05/2023 1 [employer] (MEDICARE REPLACEMENT HMO) [id number] L Gregoria K Bonzelet [id number] Kofi Archer Bonzelet 04/03/2023 1 [employer] (MEDICARE REPLACEMENT HMO) [id number] L Gregoria K Bonzelet [id number] Kofi Archer Bonzelet 10/02/2023 1 [employer] (MEDICARE REPLACEMENT HMO) [id number] L Gregoria K Bonzelet [id number] Kofi Archer Bijuzelet 04/01/2024 1 [employer] (MEDICARE REPLACEMENT HMO) [id number] L Gregoria K Bonzelet [id number] Kofi Ivychriset Notes Date Note Type Note Provider Name and Address Organization Details Recorded Time 01/23/20 23 text/htm l Patient is a 72-year-old female referred by Dr. Lizama for evaluation of her right hip pain. She complains of pain anteriorly and over lateral aspect of the right hip. This started hurting late October about 2 and half months ago. The pain is mainly in the lateral buttock and occasionally in the groin never in the buttock. She does have a history of piriformis syndrome on the left side. Her pain was worst on December 31 when she [place] Sitting seems to be the activity that is the worst for her currently and she has aching in bed. Initially her symptoms were bilaterally but it quieted down spontaneously the left side. She has not been taking any medications for this.. She recalls that initially she had a pronounced side to side sway type limb which has improved. Today bending forward she also notes pain in the posterior buttock and posterior thigh. She states that walking and standing have been bothering her lately. She walked blocks around the neighborhood last night without difficulty. Occasionally she has right knee soreness anteromedially. History of piriformis syndrome in the left buttock. Has history of coronary artery stent June 2014. She takes a baby aspirin daily to protect that stent. She sees Dr. Ly. History of diabetes with hemoglobin A1c of 6.6. The history of well-controlled hypertension. X-rays were reviewed from December 27 and demonstrate mild medial joint space narrowing of the right hip without osteophytes around the femoral head or acetabulum. This is essentially a normal appearance for age. There was enthesophyte proximal and distal to the gluteus medius insertion point on the greater trochanter consistent with insertional abductor tendon disease. The AP view of the hip shows a vacuum phenomena sign at the lower 1/2 of the sacroiliac joint which would suggest significant sacroiliac joint arthritis. Dong Myers MD [address] [place] [address], [place] [address], [place], [address], [place] [facility] [employer] [facility] 01/29/2023 10:48:32 04/03/19 24 text/htm l Patient Name: Gregoria Salinas Of Service: Sunday ( 04.03.2023 ): 1950 Age: 72 There has been approximately a 6 lb weight loss since 12/26/2022. This represents approximately a 3.6% change in weight. Weight change attributable to lifestyle changes. Vital Signs:Blood Pressure: Sitting Rt. Arm 122/84Pulse: Sitting 92 /min and RegularRespiratory Rate: 12Height 61 in or 1.5 mWeight 160 lb or 72.6 kgBMI 30.2Temperature: 97 F or 36.1 CPulse Oximetry: 95 % at rest on no oxygen Chief Complaint: Addressed in HPI Problems or conditions discussed in the HPI were the only ones reviewed during the encounter.Only social and family history addressed in the HPI were reviewed during this encounter. Attendant(s): NoneConstitutional and Systemic Symptoms:none Medication Reconciliation: from medication list. Fxekyszcyhd51/24/2023: Pharmacological stress test shows normal systolic function. No evidence of any exercise induced perfusion abnormalities noted. Left ventricular ejection fraction calculated at 73%. History of Present Illness #1. Coronary Artery Disease: There has been no change in frequency - duration - intensity in frequency, duration or intensity of chest pain. Other Complaints: none The frequency of anginal attacks is none at all. Additional Symptoms: none Therapy reviewed regarding cardiovascular management includes Aspirin, Atorvastatin Calcium, Coreg, Lisinopril and Nitroglycerin #2. Essential Hypertension: Stage: Stage I Interval Neurological Complaints no headaches. No shortness of breath, orthopnea or cardiovascular symptoms. No other symptoms related to end organ damage. Pressure has been under fair control. Currently normal. No other end organ symptoms or findings. Therapy reviewed regarding management of hypertension and includes salt restriction and Coreg and Lisinopril. #3. Type II Hypercholesterolaemia: Currently taking medication and tolerating well. No interval complaints of any muscle pain or arthralgia. No significant liver changes with medications. Last lipid panel: excellent control. Therapy reviewed regarding treatment of cholesterol management and include diet and Atorvastatin Calcium. #4. Type II Diabetes: Has had no polyuria polyphagia or polydipsia. Has had no hypoglycemic like responses. No new history of any numbness, tingling, weakness or visual problems. No nausea, anorexia or other constitutional symptoms. There has been no foot problems or non healing lesions. The last [facility] was [facility] HA[facility]: 6.5 Calculated MB mg%. Average blood sugars 100-115 mg%. Checking sugars : several times a week Medication Types Include: TZD Secondary complications include none. Macro-vascular complications include none. Therapy reviewed regarding diabetic management and include Actos Compliance: good Renal Protection: JERE inhibitors Lipid management: statins Urinary microalbumin: A1 . Ophthalmological: has seen eye doctor within the last year#5. GERD clinically stable currently taking the Nexium on an intermittent basis. Overall doing well. No complaints any increase in severity, frequency or duration of any GI reflux symptomatology. Active Medication List 04/03/2023Levsin .125 MG TABLET One Tid Ac PrinAtorvastatin Calcium 40 MG (TABLET - ORAL) Once DailyAspirin 81 MG Once DailyCoreg 6.25 MG (TABLET - ORAL) One Twice A DayLisinopril 5 MG (TABLET - ORAL) Once DailyNexium 20 MG (CAPSULE, DELAYED RELEASE - ORAL) Once DailyActos 15 MG (TABLET - ORAL) Once DailyZyrtec 10 MG (TABLET - ORAL) DailyImodium 2 MG (CAPSULE - ORAL) As NeededNitroglycerin 0.4 MG (TABLET - SUBLINGUAL) As NeededFibersure Daily Adverse Drug Reactions Reviewed 04/03/2023Hydrochlorothiazide RashSesame Seed Hives Air Way Obstruction Vaccination and Wjxxhpfdltrl8968-89 Sapulirdm9231-74 Covid Booster Ruzzho4622-62 Covid Zimieo4479-38 Kciz8870-19 Lkeuxdeln6595-95 Prevnar 13 Surgical Cqvarxx5227-90 Coronary Yaguxh3961-52 Subthyroidectomy Preventative Testing Confirmed by Our Nzhnrmp6709/18/2022 HAIC 6.5 % OF TOTAL HGB H005/22/2022 ALBUMIN 4.4 G/DL N005/22/2022 MICRO ALBUMIN 2.5 MG/DL N007/25/2021 MAMMOGRAM DEXA SCAN10/19/2016 COLONOSCOPY (10 YEARS) 10/19/2026 Social HistoryDoes not smokeDrinks sociallyBookkeeper Family HistoryMother 79 MVA, CABG, HTN and BDMFather 85 CVAOne brother in infancy still born Altagracia Lizama MD [address] [facility] [address], [place], [address], [facility] 04/03/2023 12:21:36 10/02/19 24 text/htm l Patient Name: Gregoria Salinas Of Service: Sunday ( 10.02.2023 ): 1950 Age: 73 Vital Signs:Blood Pressure: Sitting Rt. Arm 120/64Pulse: Sitting 86 /min and RegularRespiratory Rate: 14Height 61 in or 1.5 mWeight 160 lb or 72.6 kgBMI 30.2Temperature: 97 F or 36.1 CPulse Oximetry: 95 % at rest on no oxygen Chief Complaint: Addressed in HPI Problems or conditions discussed in the HPI were the only ones reviewed during the encounter.Only social and family history addressed in the HPI were reviewed during this encounter. Attendant(s): NoneConstitutional and Systemic Symptoms:none Medication Reconciliation: from medication list. Qpsfmotfkof27/24/2023: Pharmacological stress test shows normal systolic function. No evidence of any exercise induced perfusion abnormalities noted. Left ventricular ejection fraction calculated at 73%. History of Present Illness Reviewed the findings of the preventative health visit. Addressed all areas with the patient, patient's family or caregivers. Preventative examinations and testing immunizations - vaccinations, colonic neoplasm screening and mammograms all reviewed and ordered where patient was amenable to the recommendations. Cognitive function was normal. Depression addressed and where necessary medications were adjusted or instituted. End of life and living will briefly discussed with patient and where these can be filled out and legally executed. Other blood and imaging studies were ordered if considered necessary. Other recommendations may be found in the encounter note. #1. Coronary Artery Disease: There has been no change in frequency - duration - intensity in frequency, duration or intensity of chest pain. Other Complaints: none The frequency of anginal attacks is none at all. Additional Symptoms: none Therapy reviewed regarding cardiovascular management includes Aspirin, Atorvastatin Calcium, Coreg, Lisinopril and Nitroglycerin #2. Essential Hypertension: Stage: Stage I Interval Neurological Complaints no headaches, dizziness, weakness, visual changes, ataxia, aphasia and apraxia. No shortness of breath, orthopnea or cardiovascular symptoms. No other symptoms related to end organ damage. Pressure has been under excellent control. Currently normal. No other end organ symptoms or findings. Therapy reviewed regarding management of hypertension and includes weight loss and Coreg and Lisinopril. #3. Type II Diabetes: Has had no polyuria polyphagia or polydipsia. Has had no hypoglycemic like responses. No new history of any numbness, tingling, weakness or visual problems. No nausea, anorexia or other constitutional symptoms. There has been no foot problems or non healing lesions. The last HAIC was [facility] HAIC: 6.7 Calculated MB mg%. Average blood sugars 125-150 mg%. Checking sugars : several times a week Medication Types Include: TZD Secondary complications include none. Macro-vascular complications include ASHD. Therapy reviewed regarding diabetic management and include Actos Compliance: good Renal Protection: JERE inhibitors Lipid management: statins Urinary microalbumin: A1 . Ophthalmological: has seen eye doctor within the last year #4. Type II Hypercholesterolaemia: Currently taking medication and tolerating well. No interval complaints of any muscle pain or arthralgia. No significant liver changes with medications. Last lipid panel: excellent control. Therapy reviewed regarding treatment of cholesterol management and include diet and Atorvastatin Calcium. #5. Right-sided greater trochanteric bursitis. Will set up with orthopedics for further evaluation.: #6. Hx of obesity. Currently Class 1 Obesity BMI 30-34.99. Has tried numerous dietary support and supplements with no benefit. Instructed on the health consequences of the obese status particularly cancer - diabetes and heart disease. Discussed other modalities of weight loss no. Potential candidate for bariatric surgery: No. Wishes to be evaluated by Dietary: No and was offered to be evaluated and instructed by tool specialist on weight loss diet. Active Medication ListLevsin .125 MG TABLET One Tid Ac PrinAtorvastatin Calcium 40 MG (TABLET - ORAL) Once DailyAspirin 81 MG Once DailyCoreg 6.25 MG (TABLET - ORAL) One Twice A DayLisinopril 5 MG (TABLET - ORAL) Once DailyNexium 20 MG (CAPSULE, DELAYED RELEASE - ORAL) Once DailyActos 15 MG (TABLET - ORAL) Once DailyZyrtec 10 MG (TABLET - ORAL) DailyImodium 2 MG (CAPSULE - ORAL) As NeededNitroglycerin 0.4 MG (TABLET - SUBLINGUAL) As NeededFibersure Daily Adverse Drug Reactions ReviewedHydrochlorothiazide RashSesame Seed Hives Air Way ObstructionMetformin Nausea Diarrhea Vaccination and Dmviexauiaqu8944-07 Msviqziik6927-11 Covid Booster Roljqw8555-13 Covid Dglctn2818-10 Ifbx4350-77 Vedaazivw9964-59 Prevnar 13 Surgical Xvshohz3091-88 Coronary Urcppm1398-08 Subthyroidectomy Preventative Bnnjpmm4109/18/2023 LTFYQDOOG99/20/2024 ALBUMIN 4.4 G/DL N005/08/2023 MICRO ALBUMIN 0.8 MG/DL N005/08/2023 HAIC 6.7 % OF TOTAL HGB H007/25/2021 MAMMOGRAM DEXA SCAN10/19/2016 COLONOSCOPY (10 YEARS) 10/19/2026 Social HistoryDoes not smokeDrinks sociallyBookkeeper Family HistoryMother 79 MVA, CABG, HTN and BDMFather 85 CVAOne brother in infancy still born TEST RESULT RANGE UNITSHEMOGLOBIN A1C Date: 05/08/2023HEMOGLOBIN A1C 6.7 <5.7 % OF TOTAL HGBCOMPREHENSIVE METABOLIC PANEL Date: 05/08/2023SODIUM 142 135-146 MMOL/LPOTASSIUM 4.1 3.5-5.3 MMOL/LGLUCOSE 146 65-99 MG/DLUREA NITROGEN (BUN) 14 7-25 MG/DLCREATININE 0.76 0.60-1.00 MG/DLEGFR 84 > OR = 60 ML/MIN/1.03L2LVIUIVICH, TOTAL 0.7 0.2-1.2 MG/DLALKALINE PHOSPHATASE 112 37-153 U/LAST 18 10-35 U/LALT 15 6-29 U/LLIPID PANEL, STANDARD Date: 05/08/2023HOLESTEROL, TOTAL 158 <200 MG/DLHDL CHOLESTEROL 58 > OR = 50 MG/DLTRIGLYCERIDES 140 <150 MG/DLLDL-CHOLESTEROL 76 MG/DL (CALC)CBC (INCLUDES DIFF/PLT) Date: 05/08/2023WHITE BLOOD CELL COUNT 6.5 3.8-10.8 THOUSAND/ULHEMOGLOBIN 15.1 11.7-15.5 G/DLHEMATOCRIT 47.2 35.0-45.0 %PLATELET COUNT 265 140-400 THOUSAND/ULMAGNESIUM Date: 05/08/2023MAGNESIUM 1.7 1.5-2.5 MG/DLVITAMIN B12 Date: 05/08/2023VITAMIN B12 665 141-1235 PG/ML Altagracia Lizama MD [address] [facility] [address], [place], [address], [place] [facility] 10/02/2023 12:24:29 04/01/19 25 text/htm l Patient Name: Gregoria OrtizKaydenolinda Of Service: Sunday ( 04.01.2024 ): 1950 Age: 73 There has been approximately a 2 lb weight loss since 10/02/2023. This represents approximately a 1.3% change in weight. Weight change attributable to lifestyle changes. Vital Signs:Blood Pressure: Sitting Rt. Arm 160/80Pulse: Sitting 64 /min and RegularRespiratory Rate: 16Height 61 in or 1.5 mWeight 158 lb or 71.7 kgBMI 29.9Temperature: 97 F or 36.1 [facility]: 7.0 Calculated MB mg%Pulse Oximetry: 95 % at rest on no oxygen Chief Complaint: Addressed in HPI Problems or conditions discussed in the HPI were the only ones reviewed during the encounter.Only social and family history addressed in the HPI were reviewed during this encounter. Attendant(s): NoneConstitutional and Systemic Symptoms:none Medication Reconciliation: from medication list. Gfmnrafjsry34/24/2023: Pharmacological stress test shows normal systolic function. No evidence of any exercise induced perfusion abnormalities noted. Left ventricular ejection fraction calculated at 73%. History of Present Illness #1. Coronary Artery Disease: There has been no change in frequency - duration - intensity in frequency, duration or intensity of chest pain. Other Complaints: none The frequency of anginal attacks is several times per week. Additional Symptoms: none Therapy reviewed regarding cardiovascular management includes Aspirin, Atorvastatin Calcium, Coreg and Lisinopril #2. Essential Hypertension: Stage: Stage I Interval Neurological Complaints no headaches, dizziness, weakness, visual changes, ataxia, aphasia and apraxia. No shortness of breath, orthopnea or cardiovascular symptoms. No other symptoms related to end organ damage. Pressure has been under excellent control. Currently Marginally elevated. No other end organ symptoms or findings. Therapy reviewed regarding management of hypertension and includes salt restriction and Coreg and Lisinopril. #3. Type II Hypercholesterolaemia: Currently taking medication and tolerating well. No interval complaints of any muscle pain or arthralgia. No significant liver changes with medications. Last lipid panel: fair control. Therapy reviewed regarding treatment of cholesterol management and include diet and Atorvastatin Calcium. #4. Type II Diabetes: Has had no polyuria polyphagia or polydipsia. Has had no hypoglycemic like responses. No new history of any numbness, tingling, weakness or visual problems. No nausea, anorexia or other constitutional symptoms. There has been no foot problems or non healing lesions. The last HAIC was [facility] HAIC: 7.0 Calculated MB mg%. CGM: No. Average blood sugars 125-150 mg%. Checking sugars : several times a week. Medication Types Include: TZD Secondary complications include none. Macro-vascular complications include ASHD. Therapy reviewed regarding diabetic management and include Actos Compliance: good Renal Protection: not required at this stage Lipid management: A1 Urinary microalbumin: has seen eye doctor within the last year . Ophthalmological: Good Control 6.2 - 7.0. Control: Good Control 6.2 - 7.0#5. GERD clinically stable currently taking Nexium and doing well. Will check a B12 and magnesium level.Active Medication ListLevsin .125 MG TABLET One Tid Ac PrinAtorvastatin Calcium 40 MG (TABLET - ORAL) Once DailyAspirin 81 MG Once DailyCoreg 6.25 MG (TABLET - ORAL) One Twice A DayLisinopril 5 MG (TABLET - ORAL) Once DailyNexium 20 MG (CAPSULE, DELAYED RELEASE - ORAL) Once DailyActos 15 MG (TABLET - ORAL) Once DailyZyrtec 10 MG (TABLET - ORAL) DailyImodium 2 MG (CAPSULE - ORAL) As NeededNitroglycerin 0.4 MG (TABLET - SUBLINGUAL) As NeededFibersure Daily Adverse Drug Reactions ReviewedHydrochlorothiazide RashSesame Seed Hives Air Way ObstructionMetformin Nausea Diarrhea Vaccination and Immunization( ) 2020- COVID PFIZER(X) 2022- COVID BOOSTER PFIZER( ) 2017- PREVNAR 13 GC(X) 2018- PNEUMOVAX PREVNAR 20 Needed( ) 2019- DTAP(X) 2022- INFLUENZA Surgical Lmubvup1830-12 Coronary Lkdhii5828-54 Subthyroidectomy Preventative Testing( ) 11/21/2023 Mammogram 11/20/2025( ) 11/05/2023 Albumin 4.1 G/DL N( ) 11/05/2023 Micro Albumin 1.3 MG/DL N( ) 11/05/2023 HAIC 7.0 % OF TOTAL HGB H( ) 09/18/2023 Optometry(X) 07/25/2021 DEXA Scan 07/26/2023( ) 10/19/2016 Colonoscopy (10 Years) 10/19/2026 Social HistoryDoes not smokeDrinks sociallyBookkeeper Family HistoryMother 79 MVA, CABG, HTN and BDMFather 85 CVAOne brother in infancy still born Active Medication ListLevsin .125 MG TABLET One Tid Ac PrinAtorvastatin Calcium 40 MG (TABLET - ORAL) Once DailyAspirin 81 MG Once DailyCoreg 6.25 MG (TABLET - ORAL) One Twice A DayLisinopril 5 MG (TABLET - ORAL) Once DailyNexium 20 MG (CAPSULE, DELAYED RELEASE - ORAL) Once DailyActos 15 MG (TABLET - ORAL) Once DailyZyrtec 10 MG (TABLET - ORAL) DailyImodium 2 MG (CAPSULE - ORAL) As NeededNitroglycerin 0.4 MG (TABLET - SUBLINGUAL) As NeededFibersure Daily Adverse Drug Reactions ReviewedHydrochlorothiazide RashSesame Seed Hives Air Way ObstructionMetformin Nausea Diarrhea Vaccination and Immunization( ) 2020- COVID PFIZER(X) 2022-11 COVID BOOSTER PFIZER( ) 2017-10 PREVNAR 13 GC(X) 2018-08 PNEUMOVAX PREVNAR 20 Needed( ) 2019-11 DTAP(X) 2022-11 INFLUENZA Surgical [id number] Coronary [id number] Subthyroidectomy Preventative Testing( ) 11/21/2023 Mammogram 11/20/2025( ) 11/05/2023 Albumin 4.1 G/DL N( ) 11/05/2023 Micro Albumin 1.3 MG/DL N( ) 11/05/2023 HAIC 7.0 % OF TOTAL HGB H( ) 09/18/2023 Optometry(X) 07/25/2021 DEXA Scan 07/26/2023( ) 10/19/2016 Colonoscopy (10 Years) 10/19/2026 Social HistoryDoes not smokeDrinks sociallyBookkeeper Family HistoryMother 79 MVA, CABG, HTN and BDMFather 85 CVAOne brother in infancy still born Altagracia Lizama MD [address] [facility] [address], [place], [address], [place] [employer] 04/01/2024 12:18:17 OBGyn Episode No OBEpisode recorded.
--- OUTSIDE RECORDS SUMMARY | 2024-05-07 09:22 | XMS_ITS | Clinical Summary ---
Author Organization [facility] [address] Address [address] [place] [address] Care Team Providers Care Manager Servicing Name Role Phone Cristóbal Lizama MD Primary Care Provider Allergies Active Allergy Reactions Criticality Noted Date [...] ia LDL goal <70,Coronary artery disease of [place] artery of [place] heart with stable angina pectoris (HCC) TAKE [...] artery disease of n ative artery of [place] heart with stable angina pectoris 05/16/2018 Hypertriglyceridemia 05/16/2018 Cardiomyopathy, ischemic 10/27/2016 Hyperlipidemia LDL goal <70 07/16/2014 Overview (06/22/2016): Hypertriglyceridemia Hypertension 07/16/2014 Overview (06/22/2016): Hypertension Cardiomyopathy 07/16/2014 Overview (06/22/2016): Cardiomyopathy Atypical chest pain 07/16/2014 Overview (06/22/2016): Chest pain Encounters Date Type Department Care Team Description 02/15/2024 11:30 AM [employer] Office Visit [facility] [address] [place] [address] Golden Ly MD Cardiomyopathy, ischemic (Primary Dx); Coronary artery disease of [place] artery of [place] heart with stable angina pectoris (HCC); Hyperlipidemia LDL goal <70; Primary hypertension from Last 3 Months Surgical History Surgery Date Site/Laterality Comments SHUNT EXTERNALIZATION June 30, 2014 Medical History Medical History Date Comments Hx Other Medical CAD, hypertrigl yceridemia, hypertension, hemorrhoi; Comments: MAF 07/16/2014 - GERD (gastroesophageal reflu x disease) February 2020 Diabetes mellitus (HCC) November 2017 Right hip pain Family History Medical History Relation Name Comments Heart attack Father Krishna Diez Myocardial in farction; SM 07/16/2014 -Patient said may have had a stroke Arthritis Mother Gregoria Harrington Diabetes Mother Gregoria Harrington Heart disease Mother Gregoria Harrington Hypertension Mother Gregoria Harrington Miscarriages / Stillbirths Mother Gregoria Harrington Other Mother Gregoria Harrington Triple Bypass ; Relation Name Status Comments Father Krishna Diez Mother Gregoria Harrington Social History Tobacco Use Types Packs/Day Years Used Date Smoking Tobacco: Never Smokeless Tobacco: Never Alcohol Use Standard Drinks/Week Comments Yes 2 (1 standard drink = 0.6 oz pur e alcohol) Comments Unknown Sex and Gender Information Value Date Recorded Sex Assigned at Not on file Legal Sex Female 3:38 AM [employer] Gender Identity Female 04/29/2019 5:24 PM [employer] Sexual Orientation Straight 04/29/2019 5: 24 PM [employer] Obstetrics History Last Filed Vital Signs Vital Sign Reading Time Taken Comments Blood Pressure 110/60 02/15/2024 11:37 AM [employer] Pulse 83 02/15/2024 11:37 AM [employer] Temperature - - Respiratory Rate - - Oxygen Saturation 93% 02/15/2024 11:37 AM [employer] Inhaled Oxygen Concentration - - Weight 71.7 kg (158 lb) 02/15/2024 11:37 AM [employer] Height 154.9 cm (5' 1 ) 02/15/2024 11:37 AM [employer] Body Mass Index 29.85 02/15/2024 11:37 AM [employer] Plan of Treatment Health Maintenance Due Date Last Done Comments Breast Cancer Screening-Mammogram 1950 Colon Cancer Screening-Colonoscopy 1950 Depression Screening 1950 Fall Risk Assessment 1950 Hepatitis C Screening 1950 Osteoporosis Screening-Bone Density Scan 1950 Hepatitis B Screening 1970 Well Visit 65+ 2017 Influenza Vaccine (#1) 2023 3, 12/13/2022, 12/31/2020, Additional history exists DTaP/Tdap/Td Vaccine (2 - Tdap) 12/16/2029 0 Zoster Vaccine Completed 03/25/2018, 12/20/2017 Pneumococcal vaccine 65+ Completed 08/17/2018, 10/17 Insurance AETNA MEDICARE GOLD AETNA MEDICARE GOLD Care Teams Manager Servicing Relationship Specialty Start Date End Date Cristóbal Lizama MD [address] [facility] [address] [place] [address] PCP - General Internal Medicine 06/21/21
== END 2024-05-07 09:16 | disposition home or self-care (01) ==
LOC: ANHIMG 09:16
PROVIDERS: PCP Internal Medicine; Visit Provider Obstetrics & Gynecology
DX: M85.89 Other specified disorders of bone density and structure, multiple sites (principal); Z13.820 Encounter for screening for osteoporosis; Z78.0 Asymptomatic menopausal state
CPT/HCPCS: 77080

== ENCOUNTER 2025-03-10 15:31 | Outpatient (CLI) | payer MEDICARE, SELFPAY ==
--- NOTE | ~2025-03-10 | MM_ITS ---
EXAMINATION: MM screening sindy BI w ratna HISTORY: Screening. TECHNIQUE: Craniocaudal and mediolateral oblique 3-D tomosynthesis images were obtained and synthetic 2-D images were generated. CAD analysis was submitted and interpreted. COMPARISON: 2023, 2021, and 2017 BREAST PARENCHYMAL COMPOSITION: Not Dense: There are scattered areas of fibroglandular tissue FINDINGS: No suspicious masses are seen. There are no suspicious calcifications. No unexplained architectural distortion is seen. There are no skin or nipple abnormalities identified. There is no adenopathy seen on the images submitted. IMPRESSION: No mammographic evidence to suggest malignancy is seen. The patient may return to screening mammography as per ACR guidelines. BI-RADS 1 - Negative. Reviewed, dictated and finalized at location [facility]
== END 2025-03-10 15:32 | disposition home or self-care (01) ==
LOC: MICIMG 15:32
PROVIDERS: PCP Internal Medicine; Visit Provider Obstetrics & Gynecology
DX: Z12.31 Encounter for screening mammogram for malignant neoplasm of breast (principal)
CPT/HCPCS: 77063; 77067